=== PATIENT | male | born 1945 | race Caucasian/White ===

== ENCOUNTER 2021-01-28 07:37 | Inpatient (IN) | payer MEDICARE, OTHER ==
[~2021-01-28] VITALS: Ht 182.9 cm; Wt 100.5 kg
--- NOTE | 2021-01-28 07:52 | NUR ---
THIS IS A 75 YEAR OLD MALE WHO WAS BIB AMBULANCE FROM [place], HX OF DE X2, STENT, DM, CHF, FISTULA RIGHT ARM (YET TO START DIALYSIS) DUE TO SOB. PT WAS GIVENT 3 NTG, 40MG OF LASIX IV, AND 6MG OF MORPHINE. PT WAS ON C-PAP WHEN ARRIVE, SATS 76-93. PT PLACED ON HIGH LOW OXYGEN AT 50L AND 100%, SAT 92-95, PT ON WATER RESTORATION TECHNICIAN AT 79, LBBB. CONTINOUS SPO2, AND CYCLE VS. MD AT , EKG COMPLETED
[2021-01-28] MEDS ORDERED: FENTANYL PF 100 MCG/2ML IVPush ONE (08:00)
[2021-01-28] MEDS ORDERED: SODIUM CHLORIDE FLUSH 10ML SYR IVF ONE (08:00)
[2021-01-28] MEDS ORDERED: FENTANYL PF 100 MCG/2ML ONE (08:02)
[2021-01-28] MEDS ORDERED: CARV6.252 PO (08:14)
[2021-01-28] MEDS ORDERED: INSU100V13 SUBD (08:14)
[2021-01-28] MEDS ORDERED: INSU100I17 SQ-INSULIN (08:16)
[2021-01-28] MEDS ORDERED: CALC-777 MT (08:17)
[2021-01-28] MEDS ORDERED: CHOL10003 PO (08:17)
[2021-01-28] MEDS ORDERED: FURO-93 PO (08:18)
[2021-01-28] MEDS ORDERED: DOXA8TAB2 PO (08:18)
[2021-01-28] MEDS ORDERED: PRAV40TA2 PO (08:21)
[2021-01-28] MEDS ORDERED: TADA20TA PO (08:22)
--- NOTE | 2021-01-28 08:23 | NUR ---
PT SLEEPING, WAFFLE BED PLACED. REPORT TO GARY JACOB, PLAN OF CARE DISCUSSED
--- NOTE | 2021-01-28 08:30 | NUR ---
assuming care of pt after bedside report from jena rogel. pt asleep with even and unlabored respirations. rosa m.dion/
[2021-01-28 09:06] LABS: BASOPHILS % (AUTO) 0 % (0-1); EOSINOPHILS % (AUTO) 0 % (1-7); LYMPHOCYTES % (AUTO) 4 % (22-44); MEAN CORPUSCULAR HEMOGLOBIN 29.9 pg (27.5-34.5); MEAN PLATELET VOLUME 9.4 fL (7.4-10.4); MONOCYTES % (AUTO) 2 % (2-9); NEUTROPHILS % (AUTO) 94 % (42-75); PLATELET COUNT 202 x10^3/uL (130-400); RED BLOOD COUNT 3.88 x10^6/uL (4.38-5.82); RED CELL DISTRIBUTION WIDTH 14.8 % (9.4-14.8)
--- NOTE | 2021-01-28 09:08 | NUR ---
pt resting in bed requesting pain medication. md alcantar. vss. ashley.
[2021-01-28 09:15] LABS: ALANINE AMINOTRANSFERASE 51 U/L (12-78); ALBUMIN 3.7 g/dL (3.4-5.0); ANION GAP 23 mmol/L (5-15); CALCIUM 8.8 mg/dL (8.5-10.1); CHLORIDE 95 mmol/L (98-107)
[2021-01-28 09:19] LABS: ALKALINE PHOSPHATASE 100 U/L (45-117); BILIRUBIN,TOTAL 0.5 mg/dL (0.2-1.0); TOTAL PROTEIN 7.5 g/dL (6.4-8.2)
[2021-01-28 09:27] LABS: CREATININE 5.66 mg/dL (0.7-1.3)
[2021-01-28 09:32] LABS: <PLATELET ESTIMATE> ADEQUATE; <PLT MORPHOLOGY> NORMAL PLT MORPH; CRENATED 1+; OVALOCYTES 1+; SCHISTOCYTES 1+
[2021-01-28 09:33] LABS: ECHINOCYTES 1+
[2021-01-28] MEDS ORDERED: MORPHINE SULFATE 4 MG/ML, 1ML ONE (09:36)
[2021-01-28] MEDS ORDERED: ONDANSETRON 2MG/ML, 2ML ONE (09:36)
--- NOTE | 2021-01-28 09:44 | NUR ---
pt medicated per emar for pain and nausea.
[2021-01-28] MEDS ORDERED: FUROSEMIDE 100 MG/10 ML IV ONE (10:00)
[2021-01-28] MEDS ORDERED: MORPHINE SULFATE 4 MG/ML, 1ML IVPush ONE (10:00)
[2021-01-28] MEDS ORDERED: ONDANSETRON 2MG/ML, 2ML IVPush ONE (10:00)
[2021-01-28] MEDS ORDERED: FUROSEMIDE 40 MG/4 ML ONE (10:06)
[2021-01-28] MEDS ORDERED: HEPARIN 25,000 UNITS/250ML PMX 250 ML ONE (10:07)
[2021-01-28] MEDS ORDERED: HEPARIN 5,000 UNITS/ML, 1ML ONE (10:07)
[2021-01-28] MEDS: HEPARIN 25,000 UNITS/250ML PMX 250 ML IV PRN ×2 (10:27→23:36)
[2021-01-28] MEDS ORDERED: HEPARIN 5,000 UNITS/ML, 1ML IV ONE (10:30)
--- NOTE | 2021-01-28 11:35 | NUR ---
REPORT CALLED TO OSMAR
[2021-01-28] MEDS ORDERED: SODIUM ZIRCONIUM CYCLOSILICATE 10 GM PO ONE (12:00)
[2021-01-28 12:30] VITALS: BP 106/68
[2021-01-28] MEDS: INSULIN LISPRO 100 UNITS/ML, PEN SQ-INSULIN SCH ×3 (13:46→21:28)
[2021-01-28 17:26] VITALS: BP 110/66
[2021-01-28] MEDS: HEPARIN 5,000 UNITS/ML, 1ML IV PRN (18:39)
[2021-01-28] MEDS ORDERED: ONDANSETRON ODT 4 MG ONE (20:24)
[2021-01-28] MEDS ORDERED: ONDANSETRON ODT 4 MG PO PRN (20:30)
[2021-01-28] MEDS ORDERED: INSULIN GLARGINE 100 UNITS/ML, PEN SQ-INSULIN SCH (21:00)
[2021-01-28 21:25] VITALS: BP 112/73
[2021-01-28] MEDS: SODIUM BICARBONATE 650 MG TABLET PO SCH (21:26)
[2021-01-28] MEDS: CARVEDILOL 6.25 MG TABLET PO SCH (21:26)
[2021-01-28] MEDS: PRAVASTATIN 40 MG TABLET PO SCH (21:26)
[2021-01-28 23:01] LABS: BASOPHILS % (AUTO) 1 % (0-1); EOSINOPHILS % (AUTO) 0 % (1-7); LYMPHOCYTES % (AUTO) 3 % (22-44); MEAN CORPUSCULAR HEMOGLOBIN 29.5 pg (27.5-34.5); MEAN CORPUSCULAR HGB CONC 33.1 g/dL (33.2-36.2); MEAN PLATELET VOLUME 9.2 fL (7.4-10.4); MONOCYTES % (AUTO) 9 % (2-9); NEUTROPHILS % (AUTO) 88 % (42-75); PLATELET COUNT 206 x10^3/uL (130-400); RED BLOOD COUNT 3.75 x10^6/uL (4.38-5.82); RED CELL DISTRIBUTION WIDTH 14.9 % (9.4-14.8)
[2021-01-28 23:11] LABS: ALANINE AMINOTRANSFERASE 55 U/L (12-78); ALBUMIN 3.2 g/dL (3.4-5.0); ANION GAP 16 mmol/L (5-15); CALCIUM 8.9 mg/dL (8.5-10.1); CHLORIDE 95 mmol/L (98-107); CREATININE 6.21 mg/dL (0.7-1.3)
[2021-01-28 23:13] LABS: ALKALINE PHOSPHATASE 87 U/L (45-117); BILIRUBIN,TOTAL 0.4 mg/dL (0.2-1.0); TOTAL PROTEIN 7.4 g/dL (6.4-8.2)
[2021-01-28] MEDS ORDERED: LIDOCAINE-MPF 1%, 2ML ENDO PRN (23:30)
[2021-01-28] MEDS ORDERED: PHARMACY MAY ADJ FOR RENAL FX MC SCH (23:30)
[2021-01-28] MEDS: PROPOFOL 100 ML IV PRN (23:49)
[2021-01-29] MEDS ORDERED: ONDANSETRON 2MG/ML, 2ML IV PRN
[2021-01-29] MEDS ORDERED: INSULIN GLARGINE 100 UNITS/ML, PEN SQ-INSULIN SCH
[2021-01-29] MEDS ORDERED: INSULIN GLARGINE 100 UNITS/ML, PEN SQ-INSULIN ONE
[2021-01-29] MEDS: MIDAZOLAM HCL 50 MG in SODIUM CHLORIDE 0.9% 40 ML IV PRN ×2 (02:01→13:22)
[2021-01-29 06:19] LABS: BASOPHILS % (AUTO) 1 % (0-1); EOSINOPHILS % (AUTO) 0 % (1-7); LYMPHOCYTES % (AUTO) 4 % (22-44); MEAN CORPUSCULAR HEMOGLOBIN 29.3 pg (27.5-34.5); MEAN CORPUSCULAR HGB CONC 33.3 g/dL (33.2-36.2); MEAN PLATELET VOLUME 9.3 fL (7.4-10.4); MONOCYTES % (AUTO) 10 % (2-9); NEUTROPHILS % (AUTO) 86 % (42-75); PLATELET COUNT 171 x10^3/uL (130-400); RED BLOOD COUNT 3.56 x10^6/uL (4.38-5.82); RED CELL DISTRIBUTION WIDTH 14.8 % (9.4-14.8)
[2021-01-29 06:28] LABS: ANION GAP 11 mmol/L (5-15); CALCIUM 8.6 mg/dL (8.5-10.1); CHLORIDE 94 mmol/L (98-107); CREATININE 6.52 mg/dL (0.7-1.3)
[2021-01-29] MEDS ORDERED: FUROSEMIDE 40 MG/4 ML IV SCH (07:00)
[2021-01-29] MEDS ORDERED: DEXTROSE 50%, 50ML SYRINGE IVPush ONE (07:30)
[2021-01-29] MEDS ORDERED: INSULIN REGULAR 100 UNITS/ML, 3ML VIAL IVPush ONE (07:30)
[2021-01-29] MEDS ORDERED: CALCIUM GLUCONATE 0.46MEQ/1ML IVPush ONE (07:30)
[2021-01-29] MEDS ORDERED: FUROSEMIDE 100 MG/10 ML IV ONE (07:30)
[2021-01-29] MEDS: SODIUM BICARBONATE 650 MG TABLET PO SCH ×2 (09:38→20:01)
[2021-01-29] MEDS: CARVEDILOL 6.25 MG TABLET PO SCH ×2 (09:38→20:01)
[2021-01-29] MEDS: PANTOPRAZOLE 40 MG IV IV SCH (09:39)
[2021-01-29] MEDS: CHOLECALCIFEROL 1,000 UNIT TABLET PO SCH (09:39)
[2021-01-29] MEDS: DOXAZOSIN 2MG TABLET PO SCH (09:39)
[2021-01-29] MEDS: INSULIN LISPRO 100 UNITS/ML, PEN SQ-INSULIN SCH ×4 (09:40→20:19)
--- NOTE | 2021-01-29 11:45 | NUR ---
TF recs if needed: Vital AF 1.2 goal: 60mL/hr ON propofol, 70mL/hr OFF propofol Addendum: 01/29/21 at [address] Amended: Links added.
[2021-01-29] MEDS: HEPARIN 5,000 UNITS/ML, 1ML IV PRN (17:01)
[2021-01-29] MEDS: PRAVASTATIN 40 MG TABLET PO SCH (20:01)
[2021-01-29] MEDS: INSULIN GLARGINE 100 UNITS/ML, PEN SQ-INSULIN SCH (20:20)
[2021-01-30] MEDS: HEPARIN 25,000 UNITS/250ML PMX 250 ML IV PRN ×2 (00:25→19:34)
[2021-01-30 01:12] VITALS: BP 144/70
[2021-01-30] MEDS: INSULIN LISPRO 100 UNITS/ML, PEN SQ-INSULIN SCH ×4 (03:26→21:05)
[2021-01-30 05:51] LABS: BASOPHILS % (AUTO) 0 % (0-1); EOSINOPHILS % (AUTO) 0 % (1-7); LYMPHOCYTES % (AUTO) 5 % (22-44); MEAN CORPUSCULAR HEMOGLOBIN 29.6 pg (27.5-34.5); MEAN CORPUSCULAR HGB CONC 33.6 g/dL (33.2-36.2); MEAN PLATELET VOLUME 9.5 fL (7.4-10.4); MONOCYTES % (AUTO) 11 % (2-9); NEUTROPHILS % (AUTO) 84 % (42-75); PLATELET COUNT 135 x10^3/uL (130-400)
[2021-01-30] MEDS: HEPARIN 5,000 UNITS/ML, 1ML IV PRN ×2 (06:07→14:50)
[2021-01-30 07:02] LABS: ANION GAP 12 mmol/L (5-15); CALCIUM 8.8 mg/dL (8.5-10.1); CHLORIDE 98 mmol/L (98-107); CREATININE 5.56 mg/dL (0.7-1.3)
[2021-01-30] MEDS: CALCITRIOL 0.25 MCG CAPSULE PO SCH (08:45)
[2021-01-30] MEDS: CHOLECALCIFEROL 1,000 UNIT TABLET PO SCH (08:45)
[2021-01-30] MEDS: DOXAZOSIN 2MG TABLET PO SCH (08:45)
[2021-01-30] MEDS: SODIUM BICARBONATE 650 MG TABLET PO SCH ×2 (08:46→20:38)
[2021-01-30] MEDS: CARVEDILOL 6.25 MG TABLET PO SCH ×2 (08:46→20:38)
[2021-01-30] MEDS: PANTOPRAZOLE 40 MG IV IV SCH (08:47)
[2021-01-30] MEDS: MIDAZOLAM HCL 50 MG in SODIUM CHLORIDE 0.9% 40 ML IV PRN (19:21)
[2021-01-30] MEDS: PRAVASTATIN 40 MG TABLET PO SCH (20:37)
[2021-01-30] MEDS: INSULIN GLARGINE 100 UNITS/ML, PEN SQ-INSULIN SCH (21:05)
[2021-01-31 03:14] LABS: BASOPHILS % (AUTO) 1 % (0-1); EOSINOPHILS % (AUTO) 0 % (1-7); LYMPHOCYTES % (AUTO) 5 % (22-44); MEAN CORPUSCULAR HEMOGLOBIN 29.3 pg (27.5-34.5); MEAN CORPUSCULAR HGB CONC 33.1 g/dL (33.2-36.2); MEAN PLATELET VOLUME 9.6 fL (7.4-10.4); MONOCYTES % (AUTO) 10 % (2-9); NEUTROPHILS % (AUTO) 84 % (42-75); PLATELET COUNT 132 x10^3/uL (130-400); RED BLOOD COUNT 3.25 x10^6/uL (4.38-5.82); RED CELL DISTRIBUTION WIDTH 14.8 % (9.4-14.8)
[2021-01-31] MEDS: INSULIN LISPRO 100 UNITS/ML, PEN SQ-INSULIN SCH ×4 (03:16→21:15)
[2021-01-31] MEDS: MIDAZOLAM HCL 50 MG in SODIUM CHLORIDE 0.9% 40 ML IV PRN (04:09)
[2021-01-31 04:19] LABS: ANION GAP 13 mmol/L (5-15); CALCIUM 8.6 mg/dL (8.5-10.1); CHLORIDE 99 mmol/L (98-107); CREATININE 5.29 mg/dL (0.7-1.3)
[2021-01-31] MEDS: HEPARIN 5,000 UNITS/ML, 1ML IV PRN (04:40)
[2021-01-31] MEDS: CARVEDILOL 6.25 MG TABLET PO SCH ×2 (08:42→21:06)
[2021-01-31] MEDS: CHOLECALCIFEROL 1,000 UNIT TABLET PO SCH (08:42)
[2021-01-31] MEDS: SODIUM BICARBONATE 650 MG TABLET PO SCH ×2 (08:42→21:06)
[2021-01-31] MEDS: PANTOPRAZOLE 40 MG IV IV SCH (08:42)
[2021-01-31] MEDS: CALCITRIOL 0.25 MCG CAPSULE PO SCH (08:42)
[2021-01-31] MEDS: DOXAZOSIN 2MG TABLET PO SCH (08:42)
[2021-01-31] MEDS ORDERED: LOSARTAN 25MG TABLET ONE (08:45)
[2021-01-31] MEDS: LOSARTAN 25MG TABLET PO SCH (08:45)
[2021-01-31] MEDS: ASPIRIN 81 MG TABLET CHEW PO SCH (08:45)
[2021-01-31] MEDS ORDERED: ASPIRIN 81 MG TABLET CHEW ONE (08:45)
[2021-01-31] MEDS: HEPARIN 5,000 UNITS/ML, 1ML SQ SCH ×2 (08:58→16:55)
[2021-01-31] MEDS ORDERED: ALBUMIN HUMAN 25% 100 ML ONE (10:39)
[2021-01-31] MEDS ORDERED: ALBUMIN HUMAN 25% 100 ML IV ONE ×2 (11:00)
[2021-01-31] MEDS: FENTANYL PF 100 MCG/2ML IVPush PRN (18:09)
[2021-01-31] MEDS: PROPOFOL 100 ML IV PRN (20:34)
[2021-01-31] MEDS: ATORVASTATIN 80 MG TABLET PO SCH (21:06)
[2021-01-31] MEDS: INSULIN GLARGINE 100 UNITS/ML, PEN SQ-INSULIN SCH (21:14)
[2021-02-01] MEDS: PROPOFOL 100 ML IV PRN (00:45)
[2021-02-01] MEDS: HEPARIN 5,000 UNITS/ML, 1ML SQ SCH ×3 (00:46→17:25)
[2021-02-01] MEDS: INSULIN LISPRO 100 UNITS/ML, PEN SQ-INSULIN SCH ×4 (03:21→21:51)
[2021-02-01 04:39] LABS: BASOPHILS % (AUTO) 0 % (0-1); EOSINOPHILS % (AUTO) 0 % (1-7); LYMPHOCYTES % (AUTO) 7 % (22-44); MEAN CORPUSCULAR HEMOGLOBIN 30.1 pg (27.5-34.5); MEAN CORPUSCULAR HGB CONC 34.1 g/dL (33.2-36.2); MEAN PLATELET VOLUME 9.8 fL (7.4-10.4); MONOCYTES % (AUTO) 15 % (2-9); NEUTROPHILS % (AUTO) 78 % (42-75); PLATELET COUNT 133 x10^3/uL (130-400); RED CELL DISTRIBUTION WIDTH 14.3 % (9.4-14.8)
[2021-02-01 05:18] LABS: ANION GAP 10 mmol/L (5-15); CALCIUM 8.4 mg/dL (8.5-10.1); CHLORIDE 102 mmol/L (98-107); CREATININE 4.08 mg/dL (0.7-1.3)
[2021-02-01] MEDS: DOCUSATE 50 MG/5 ML, 10ML UDC NG SCH (08:27)
[2021-02-01] MEDS: DOXAZOSIN 2MG TABLET PO SCH (08:28)
[2021-02-01] MEDS: CARVEDILOL 6.25 MG TABLET PO SCH (08:28)
[2021-02-01] MEDS: ASPIRIN 81 MG TABLET CHEW PO SCH (08:28)
[2021-02-01] MEDS: CHOLECALCIFEROL 1,000 UNIT TABLET PO SCH (08:28)
[2021-02-01] MEDS: PANTOPRAZOLE 40 MG IV IV SCH (08:29)
[2021-02-01] MEDS: LOSARTAN 25MG TABLET PO SCH (08:29)
[2021-02-01] MEDS: CALCITRIOL 0.25 MCG CAPSULE PO SCH (08:29)
[2021-02-01] MEDS ORDERED: DOCUSATE 100 MG CAPSULE PO SCH (09:00)
[2021-02-01] MEDS: DEXMEDETOMIDINE 400 MCG in SODIUM CHLORIDE 0.9% 96 ML IV PRN ×2 (09:42→14:09)
[2021-02-01] MEDS: FENTANYL PF 100 MCG/2ML IVPush PRN ×2 (11:29→18:41)
[2021-02-01] MEDS ORDERED: POTASSIUM CHLORIDE 20 MEQ TAB.ER.PRT ONE (12:24)
[2021-02-01] MEDS ORDERED: POTASSIUM CHLORIDE 20 MEQ TAB.ER.PRT PO ONE (12:30)
[2021-02-01] MEDS: DEXMEDETOMIDINE 1,000 MCG in SODIUM CHLORIDE 0.9% 240 ML IV PRN (19:53)
[2021-02-01] MEDS: LACTULOSE 20 GM/30 ML UDC PO PRN (19:53)
[2021-02-01] MEDS: ATORVASTATIN 80 MG TABLET PO SCH (19:57)
[2021-02-01] MEDS: SENNA 176 MG/5 ML ORAL SOL NG SCH (20:24)
[2021-02-01] MEDS ORDERED: CARVEDILOL 6.25 MG TABLET PO SCH (21:00)
[2021-02-01] MEDS ORDERED: SENNA/DOCUSATE TABLET PO SCH (21:00)
[2021-02-01] MEDS: INSULIN GLARGINE 100 UNITS/ML, PEN SQ-INSULIN SCH (21:51)
[2021-02-02] MEDS: HEPARIN 5,000 UNITS/ML, 1ML SQ SCH ×3 (01:05→17:13)
[2021-02-02 03:37] LABS: MEAN CORPUSCULAR HGB CONC 33.8 g/dL (33.2-36.2); MEAN PLATELET VOLUME 9.4 fL (7.4-10.4); PLATELET COUNT 150 x10^3/uL (130-400); RED BLOOD COUNT 3.52 x10^6/uL (4.38-5.82); RED CELL DISTRIBUTION WIDTH 14.6 % (9.4-14.8)
[2021-02-02 03:44] LABS: ANION GAP 13 mmol/L (5-15); CALCIUM 8.6 mg/dL (8.5-10.1); CHLORIDE 101 mmol/L (98-107)
[2021-02-02] MEDS: FENTANYL PF 100 MCG/2ML IVPush PRN (03:48)
[2021-02-02] MEDS: INSULIN LISPRO 100 UNITS/ML, PEN SQ-INSULIN SCH ×4 (03:54→21:37)
[2021-02-02 04:06] LABS: BAND#(MANUAL) 0.84 x10^3/uL; BANDS%(MANUAL) 8 % (0-7); LYMPH#(MANUAL) 0.42 x10^3/uL (1-3.4); LYMPHS% (MANUAL) 4 % (22-44); MONOS#(MANUAL) 1.16 x10^3/uL (0.3-2.7); MONOS% (MANUAL) 11 % (2-9); PMNS WITH VACUOLES 2+; SEG#(MANUAL) 8.09 x10^3/uL (1.8-6.8); SEGS% (MANUAL) 77 % (42-75)
[2021-02-02 04:07] LABS: ANISOCYTOSIS 1+; CRENATED 1+; OVALOCYTES 1+
[2021-02-02 04:09] LABS: <PLATELET ESTIMATE> ADEQUATE; LARGE PLATELETS 1+
[2021-02-02 07:07] LABS: ALBUMIN 2.3 g/dL (3.4-5.0); BILIRUBIN, DIRECT 0.4 mg/dL (0.1-0.2)
[2021-02-02 07:09] LABS: BILIRUBIN,INDIRECT 0.6 mg/dL (0.0-2.0); TOTAL PROTEIN 6.6 g/dL (6.4-8.2)
[2021-02-02] MEDS: DEXMEDETOMIDINE 1,000 MCG in SODIUM CHLORIDE 0.9% 240 ML IV PRN (07:17)
[2021-02-02] MEDS: PANTOPRAZOLE 40 MG IV IV SCH (08:31)
[2021-02-02] MEDS: DOCUSATE 50 MG/5 ML, 10ML UDC NG SCH (08:31)
[2021-02-02] MEDS: LOSARTAN 25MG TABLET PO SCH ×2 (08:32→20:49)
[2021-02-02] MEDS: CALCITRIOL 0.25 MCG CAPSULE PO SCH (08:32)
[2021-02-02] MEDS: ASPIRIN 81 MG TABLET CHEW PO SCH (08:32)
[2021-02-02] MEDS: CARVEDILOL 25 MG TABLET PO SCH ×2 (08:32→20:50)
[2021-02-02] MEDS: CHOLECALCIFEROL 1,000 UNIT TABLET PO SCH (08:32)
[2021-02-02] MEDS: DOXAZOSIN 2MG TABLET PO SCH (08:52)
[2021-02-02] MEDS ORDERED: FUROSEMIDE 100 MG/10 ML IV ONE (11:30)
[2021-02-02] MEDS: LACTULOSE 20 GM/30 ML UDC PO PRN (14:12)
[2021-02-02] MEDS: ATORVASTATIN 80 MG TABLET PO SCH (20:49)
[2021-02-02] MEDS: SENNA 176 MG/5 ML ORAL SOL NG SCH (21:24)
[2021-02-02] MEDS: INSULIN GLARGINE 100 UNITS/ML, PEN SQ-INSULIN SCH (21:37)
[2021-02-03] MEDS: HEPARIN 5,000 UNITS/ML, 1ML SQ SCH ×3 (00:01→16:55)
[2021-02-03] MEDS: DEXMEDETOMIDINE 1,000 MCG in SODIUM CHLORIDE 0.9% 240 ML IV PRN ×3 (00:59→21:27)
[2021-02-03] MEDS: INSULIN LISPRO 100 UNITS/ML, PEN SQ-INSULIN SCH ×4 (03:46→21:18)
[2021-02-03 04:23] LABS: BASOPHILS % (AUTO) 0 % (0-1); EOSINOPHILS % (AUTO) 1 % (1-7); LYMPHOCYTES % (AUTO) 5 % (22-44); MEAN CORPUSCULAR HEMOGLOBIN 29.9 pg (27.5-34.5); MEAN CORPUSCULAR HGB CONC 34.1 g/dL (33.2-36.2); MEAN PLATELET VOLUME 9.3 fL (7.4-10.4); MONOCYTES % (AUTO) 19 % (2-9); NEUTROPHILS % (AUTO) 76 % (42-75); PLATELET COUNT 154 x10^3/uL (130-400); RED BLOOD COUNT 3.21 x10^6/uL (4.38-5.82); RED CELL DISTRIBUTION WIDTH 14.2 % (9.4-14.8)
[2021-02-03 04:35] LABS: ANION GAP 10 mmol/L (5-15); CHLORIDE 99 mmol/L (98-107)
[2021-02-03 04:38] LABS: CREATININE 3.63 mg/dL (0.7-1.3); TRIGLYCERIDES 102 mg/dL (50-200)
[2021-02-03] MEDS: CHOLECALCIFEROL 1,000 UNIT TABLET PO SCH (09:36)
[2021-02-03] MEDS: ASPIRIN 81 MG TABLET CHEW PO SCH (09:36)
[2021-02-03] MEDS: DOCUSATE 50 MG/5 ML, 10ML UDC NG SCH (09:36)
[2021-02-03] MEDS: PANTOPRAZOLE 40 MG IV IV SCH (09:37)
[2021-02-03] MEDS: AMLODIPINE 5 MG TABLET PO SCH (11:53)
[2021-02-03] MEDS: RISPERIDONE 1 MG/ML ORAL SOLN NG SCH ×2 (11:53→21:05)
[2021-02-03] MEDS: DOXAZOSIN 2MG TABLET PO SCH (11:54)
[2021-02-03] MEDS: CARVEDILOL 25 MG TABLET PO SCH ×2 (11:55→21:05)
[2021-02-03] MEDS: LOSARTAN 25MG TABLET PO SCH ×2 (11:55→21:06)
[2021-02-03] MEDS ORDERED: FUROSEMIDE 100 MG/10 ML IV ONE (13:00)
[2021-02-03] MEDS: CALCITRIOL 1 MCG/ML SOL NG SCH (14:14)
[2021-02-03] MEDS: LACTULOSE 20 GM/30 ML UDC PO PRN ×2 (16:54→16:57)
[2021-02-03] MEDS: LORazepam 1MG TABLET PO PRN ×2 (16:54→22:59)
[2021-02-03] MEDS: ATORVASTATIN 80 MG TABLET PO SCH (21:06)
[2021-02-03] MEDS: INSULIN GLARGINE 100 UNITS/ML, PEN SQ-INSULIN SCH (21:19)
[2021-02-03] MEDS ORDERED: METHYLNALTREXONE 12 MG/0.6 ML SYR SQ STA (22:12)
[2021-02-04] MEDS: HEPARIN 5,000 UNITS/ML, 1ML SQ SCH ×3 (01:14→18:31)
[2021-02-04] MEDS: INSULIN LISPRO 100 UNITS/ML, PEN SQ-INSULIN SCH ×4 (03:00→20:43)
[2021-02-04] MEDS: DEXMEDETOMIDINE 1,000 MCG in SODIUM CHLORIDE 0.9% 240 ML IV PRN (04:44)
[2021-02-04 04:59] LABS: BASOPHILS % (AUTO) 0 % (0-1); EOSINOPHILS % (AUTO) 2 % (1-7); LYMPHOCYTES % (AUTO) 7 % (22-44); MEAN CORPUSCULAR HEMOGLOBIN 29.4 pg (27.5-34.5); MEAN PLATELET VOLUME 9.4 fL (7.4-10.4); MONOCYTES % (AUTO) 22 % (2-9); NEUTROPHILS % (AUTO) 70 % (42-75); PLATELET COUNT 162 x10^3/uL (130-400); RED BLOOD COUNT 3.01 x10^6/uL (4.38-5.82); RED CELL DISTRIBUTION WIDTH 14.1 % (9.4-14.8)
[2021-02-04 05:11] LABS: ANION GAP 8 mmol/L (5-15); CALCIUM 8.5 mg/dL (8.5-10.1); CHLORIDE 100 mmol/L (98-107); CREATININE 4.41 mg/dL (0.7-1.3)
[2021-02-04] MEDS ORDERED: METOCLOPRAMIDE 5 MG/ML, 2ML ONE (06:02)
[2021-02-04] MEDS: METOCLOPRAMIDE 5 MG/ML, 2ML IVPush SCH ×3 (06:05→18:31)
[2021-02-04] MEDS ORDERED: FLUMAZENIL 0.1 MG/1 ML, 5ML ONE (07:26)
[2021-02-04] MEDS ORDERED: FLUMAZENIL 0.1 MG/1 ML, 5ML IVPush ONE ×2 (07:30→08:00)
[2021-02-04] MEDS: LOSARTAN 25MG TABLET PO SCH ×2 (09:00→20:49)
[2021-02-04] MEDS: CALCITRIOL 1 MCG/ML SOL NG SCH (09:00)
[2021-02-04] MEDS: AMLODIPINE 5 MG TABLET PO SCH (09:00)
[2021-02-04] MEDS: CHOLECALCIFEROL 1,000 UNIT TABLET PO SCH (09:00)
[2021-02-04] MEDS: ASPIRIN 81 MG TABLET CHEW PO SCH (09:00)
[2021-02-04] MEDS: DOCUSATE 50 MG/5 ML, 10ML UDC NG SCH (09:00)
[2021-02-04] MEDS: RISPERIDONE 1 MG/ML ORAL SOLN NG SCH ×2 (09:00→20:48)
[2021-02-04] MEDS: DOXAZOSIN 2MG TABLET PO SCH (09:00)
[2021-02-04] MEDS: CARVEDILOL 25 MG TABLET PO SCH ×2 (09:00→20:49)
[2021-02-04] MEDS: PANTOPRAZOLE 40 MG IV IV SCH (09:14)
[2021-02-04] MEDS ORDERED: ALBUMIN HUMAN 25% 100 ML ONE (15:10)
[2021-02-04] MEDS: BISACODYL 10 MG SUPP PR PRN (16:28)
[2021-02-04] MEDS: INSULIN GLARGINE 100 UNITS/ML, PEN SQ-INSULIN SCH (20:44)
[2021-02-04] MEDS: ATORVASTATIN 80 MG TABLET PO SCH (20:49)
[2021-02-04] MEDS ORDERED: DIPHENHYDRAMINE 25 MG CAPSULE ONE (23:03)
[2021-02-04] MEDS ORDERED: DIPHENHYDRAMINE 25 MG CAPSULE PO PRN (23:30)
[2021-02-05] MEDS: METOCLOPRAMIDE 5 MG/ML, 2ML IVPush SCH ×4 (00:21→17:11)
[2021-02-05] MEDS: HEPARIN 5,000 UNITS/ML, 1ML SQ SCH ×3 (00:22→17:12)
[2021-02-05 02:26] LABS: OCCULT BLOOD NEGATIVE (NEGATIVE)
[2021-02-05] MEDS: INSULIN LISPRO 100 UNITS/ML, PEN SQ-INSULIN SCH ×5 (03:03→21:03)
[2021-02-05] MEDS ORDERED: ACETAMINOPHEN 500 MG TABLET ONE (03:42)
[2021-02-05] MEDS: ACETAMINOPHEN 500 MG TABLET PO PRN ×2 (03:44→12:24)
[2021-02-05 03:49] VITALS: BP 121/53
[2021-02-05 04:40] LABS: BASOPHILS % (AUTO) 1 % (0-1); EOSINOPHILS % (AUTO) 0 % (1-7); LYMPHOCYTES % (AUTO) 3 % (22-44); MEAN CORPUSCULAR HEMOGLOBIN 29.8 pg (27.5-34.5); MEAN CORPUSCULAR HGB CONC 33.5 g/dL (33.2-36.2); MONOCYTES % (AUTO) 18 % (2-9); NEUTROPHILS % (AUTO) 78 % (42-75); PLATELET COUNT 172 x10^3/uL (130-400); RED BLOOD COUNT 2.83 x10^6/uL (4.38-5.82); RED CELL DISTRIBUTION WIDTH 14.3 % (9.4-14.8)
[2021-02-05 04:48] LABS: ANION GAP 11 mmol/L (5-15); CHLORIDE 99 mmol/L (98-107)
[2021-02-05 04:49] LABS: CREATININE 4.12 mg/dL (0.7-1.3)
[2021-02-05] MEDS: PANTOPRAZOLE 40 MG IV IV SCH (08:46)
[2021-02-05] MEDS: CALCITRIOL 1 MCG/ML SOL NG SCH (08:47)
[2021-02-05] MEDS: DOCUSATE 50 MG/5 ML, 10ML UDC NG SCH (08:47)
[2021-02-05] MEDS: RISPERIDONE 1 MG/ML ORAL SOLN NG SCH (08:47)
[2021-02-05] MEDS: CHOLECALCIFEROL 1,000 UNIT TABLET PO SCH (08:48)
[2021-02-05] MEDS: ASPIRIN 81 MG TABLET CHEW PO SCH (08:48)
[2021-02-05] MEDS: CARVEDILOL 25 MG TABLET PO SCH ×2 (08:48→20:50)
[2021-02-05] MEDS: LOSARTAN 25MG TABLET PO SCH ×2 (08:48→20:50)
[2021-02-05] MEDS: AMLODIPINE 5 MG TABLET PO SCH (08:48)
[2021-02-05] MEDS: DOXAZOSIN 2MG TABLET PO SCH (08:49)
[2021-02-05] MEDS: ATORVASTATIN 80 MG TABLET PO SCH (20:50)
[2021-02-05] MEDS: MELATONIN 5 MG TABLET PO SCH (20:50)
[2021-02-05] MEDS: INSULIN GLARGINE 100 UNITS/ML, PEN SQ-INSULIN SCH (21:03)
[2021-02-06] MEDS: METOCLOPRAMIDE 5 MG/ML, 2ML IVPush SCH ×2 (00:24→02:45)
[2021-02-06] MEDS: HEPARIN 5,000 UNITS/ML, 1ML SQ SCH ×3 (00:24→16:55)
[2021-02-06] MEDS: INSULIN LISPRO 100 UNITS/ML, PEN SQ-INSULIN SCH ×4 (02:49→21:17)
[2021-02-06 03:57] LABS: ANION GAP 16 mmol/L (5-15); CALCIUM 8.8 mg/dL (8.5-10.1); CHLORIDE 97 mmol/L (98-107); CREATININE 6.15 mg/dL (0.7-1.3)
[2021-02-06 06:23] LABS: BASOPHILS % (AUTO) 0 % (0-1); EOSINOPHILS % (AUTO) 0 % (1-7); LYMPHOCYTES % (AUTO) 4 % (22-44); MEAN CORPUSCULAR HEMOGLOBIN 29.6 pg (27.5-34.5); MEAN CORPUSCULAR HGB CONC 33.1 g/dL (33.2-36.2); MEAN PLATELET VOLUME 9.7 fL (7.4-10.4); MONOCYTES % (AUTO) 11 % (2-9); NEUTROPHILS % (AUTO) 85 % (42-75); PLATELET COUNT 180 x10^3/uL (130-400); RED BLOOD COUNT 2.87 x10^6/uL (4.38-5.82); RED CELL DISTRIBUTION WIDTH 14.5 % (9.4-14.8)
[2021-02-06] MEDS: PANTOPRAZOLE 40 MG IV IV SCH (08:23)
[2021-02-06] MEDS: ASPIRIN 81 MG TABLET CHEW PO SCH (08:24)
[2021-02-06] MEDS: LOSARTAN 25MG TABLET PO SCH ×2 (08:24→20:35)
[2021-02-06] MEDS: AMLODIPINE 5 MG TABLET PO SCH (08:24)
[2021-02-06] MEDS: CHOLECALCIFEROL 1,000 UNIT TABLET PO SCH (08:24)
[2021-02-06] MEDS: CARVEDILOL 25 MG TABLET PO SCH ×2 (08:24→20:35)
[2021-02-06] MEDS: DOCUSATE 50 MG/5 ML, 10ML UDC NG SCH (08:25)
[2021-02-06] MEDS: D5%-0.45% NACL 1,000 ML IV SCH ×2 (09:57→21:49)
[2021-02-06] MEDS: CALCITRIOL 1 MCG/ML SOL NG SCH (10:01)
[2021-02-06] MEDS: DOXAZOSIN 2MG TABLET PO SCH (12:00)
[2021-02-06] MEDS: ALBUMIN HUMAN 25% 100 ML IV PRN (13:55)
[2021-02-06] MEDS: ATORVASTATIN 80 MG TABLET PO SCH (20:35)
[2021-02-06] MEDS: MELATONIN 5 MG TABLET PO SCH (20:36)
[2021-02-06] MEDS: INSULIN GLARGINE 100 UNITS/ML, PEN SQ-INSULIN SCH (20:37)
[2021-02-06] MEDS ORDERED: INSULIN LISPRO 100 UNIT/ML, 3ML VIAL SQ-INSULIN ONE ×2 (21:30→22:30)
[2021-02-07] VITALS (13 sets, daily range): BP systolic 125–141; BP diastolic 49–65
[2021-02-07] MEDS: HEPARIN 5,000 UNITS/ML, 1ML SQ SCH ×3 (00:44→17:41)
[2021-02-07] MEDS: INSULIN LISPRO 100 UNITS/ML, PEN SQ-INSULIN SCH ×4 (02:32→23:35)
[2021-02-07 04:25] LABS: BASOPHILS % (AUTO) 0 % (0-1); EOSINOPHILS % (AUTO) 0 % (1-7); LYMPHOCYTES % (AUTO) 3 % (22-44); MEAN CORPUSCULAR HEMOGLOBIN 29.1 pg (27.5-34.5); MEAN CORPUSCULAR HGB CONC 32.7 g/dL (33.2-36.2); MONOCYTES % (AUTO) 12 % (2-9); NEUTROPHILS % (AUTO) 85 % (42-75); PLATELET COUNT 178 x10^3/uL (130-400); RED BLOOD COUNT 2.79 x10^6/uL (4.38-5.82)
[2021-02-07 04:43] LABS: CALCIUM 8.5 mg/dL (8.5-10.1); CHLORIDE 91 mmol/L (98-107)
[2021-02-07 04:47] LABS: ANION GAP 10 mmol/L (5-15); CREATININE 5.66 mg/dL (0.7-1.3)
[2021-02-07] MEDS: CHOLECALCIFEROL 1,000 UNIT TABLET PO SCH (08:00)
[2021-02-07] MEDS: PANTOPRAZOLE 40 MG IV IV SCH (08:00)
[2021-02-07] MEDS: ASPIRIN 81 MG TABLET CHEW PO SCH (08:00)
[2021-02-07] MEDS: CALCITRIOL 1 MCG/ML SOL NG SCH (08:02)
[2021-02-07] MEDS: LOSARTAN 25MG TABLET PO SCH ×2 (08:04→21:08)
[2021-02-07] MEDS: DOCUSATE 50 MG/5 ML, 10ML UDC NG SCH (08:04)
[2021-02-07] MEDS: CARVEDILOL 25 MG TABLET PO SCH ×2 (08:04→21:08)
[2021-02-07] MEDS: AMLODIPINE 5 MG TABLET PO SCH (08:05)
[2021-02-07] MEDS: DOXAZOSIN 2MG TABLET PO SCH (12:00)
[2021-02-07] MEDS ORDERED: SUCCINYLCHOLINE 20 MG/ML, 10ML ONE (15:47)
[2021-02-07] MEDS ORDERED: ETOMIDATE 20 MG/10 ML ONE (15:47)
[2021-02-07] MEDS ORDERED: INSULIN LISPRO 100 UNITS/ML, PEN SQ-INSULIN SCH (16:00)
[2021-02-07] MEDS ORDERED: PROPOFOL 100 ML IV ONE (16:11)
[2021-02-07] MEDS ORDERED: PHARMACY MAY ADJ FOR RENAL FX MC SCH (16:30)
[2021-02-07] MEDS ORDERED: VANCOMYCIN PER PHARMACY MC PRN (16:30)
[2021-02-07] MEDS ORDERED: PHARMACOKINETIC MONITORING MC PRN (17:00)
[2021-02-07] MEDS ORDERED: PHARMACOKINETIC CONSULTATION MC ONE (17:00)
[2021-02-07] MEDS ORDERED: VANCOMYCIN 2,100 MG in SODIUM CHLORIDE 0.9% 500 ML IV ONE (17:30)
[2021-02-07] MEDS: PIPERACILLIN/TAZO 2.25 GM in SODIUM CHLORIDE 0.9% 50 ML IV SCH (17:41)
[2021-02-07] MEDS: ATORVASTATIN 80 MG TABLET PO SCH (20:52)
[2021-02-07] MEDS: MELATONIN 5 MG TABLET PO SCH (20:52)
[2021-02-07] MEDS: INSULIN GLARGINE 100 UNITS/ML, PEN SQ-INSULIN SCH (20:52)
[2021-02-07] MEDS: PROPOFOL 100 ML IV PRN ×2 (20:55→23:31)
[2021-02-07] MEDS: DARBEPOETIN 100 MCG/ML SQ SCH (21:00)
[2021-02-08] VITALS (15 sets, daily range): BP systolic 119–148; BP diastolic 46–67
[2021-02-08] MEDS: PIPERACILLIN/TAZO 2.25 GM in SODIUM CHLORIDE 0.9% 50 ML IV SCH ×3 (00:18→16:57)
[2021-02-08] MEDS: HEPARIN 5,000 UNITS/ML, 1ML SQ SCH ×3 (00:19→16:57)
[2021-02-08] MEDS: DARBEPOETIN 100 MCG/ML SQ SCH (00:46)
[2021-02-08] MEDS: PROPOFOL 100 ML IV PRN ×4 (02:59→20:26)
[2021-02-08] MEDS: INSULIN LISPRO 100 UNITS/ML, PEN SQ-INSULIN SCH ×4 (05:35→23:30)
[2021-02-08 06:22] LABS: MEAN CORPUSCULAR HEMOGLOBIN 29.1 pg (27.5-34.5); MEAN CORPUSCULAR HGB CONC 33.1 g/dL (33.2-36.2); MEAN PLATELET VOLUME 9.2 fL (7.4-10.4); PLATELET COUNT 186 x10^3/uL (130-400); RED BLOOD COUNT 2.73 x10^6/uL (4.38-5.82); RED CELL DISTRIBUTION WIDTH 13.8 % (9.4-14.8)
[2021-02-08 06:35] LABS: ALBUMIN 2.3 g/dL (3.4-5.0); ANION GAP 12 mmol/L (5-15); CALCIUM 8.4 mg/dL (8.5-10.1); CHLORIDE 96 mmol/L (98-107)
[2021-02-08 06:39] LABS: % IRON SATURATION 20 % (20-55); ALANINE AMINOTRANSFERASE 30 U/L (12-78); ALKALINE PHOSPHATASE 77 U/L (45-117); BILIRUBIN,TOTAL 0.8 mg/dL (0.2-1.0); CREATININE 5.61 mg/dL (0.7-1.3); IRON LEVEL 30 mcg/dL (65-175); TOTAL IRON BINDING CAPACITY 153 mcg/dL (250-450); TOTAL PROTEIN 6.3 g/dL (6.4-8.2)
[2021-02-08 06:44] LABS: BAND#(MANUAL) 0.42 x10^3/uL; BANDS%(MANUAL) 3 % (0-7); LYMPH#(MANUAL) 0.84 x10^3/uL (1-3.4); LYMPHS% (MANUAL) 6 % (22-44); MONOS#(MANUAL) 0.98 x10^3/uL (0.3-2.7); MONOS% (MANUAL) 7 % (2-9); SEG#(MANUAL) 11.76 x10^3/uL (1.8-6.8); SEGS% (MANUAL) 84 % (42-75)
[2021-02-08 06:45] LABS: ANISOCYTOSIS 1+
[2021-02-08 06:54] LABS: <PLATELET ESTIMATE> ADEQUATE; <PLT MORPHOLOGY> NORMAL PLT MORPH; OVALOCYTES 1+; TEAR DROPS 1+
[2021-02-08] MEDS: DOCUSATE 50 MG/5 ML, 10ML UDC NG SCH (09:00)
[2021-02-08] MEDS: CHOLECALCIFEROL 1,000 UNIT TABLET PO SCH (10:05)
[2021-02-08] MEDS: PANTOPRAZOLE 40 MG IV IV SCH (10:05)
[2021-02-08] MEDS: AMLODIPINE 5 MG TABLET PO SCH (10:06)
[2021-02-08] MEDS: ASPIRIN 81 MG TABLET CHEW PO SCH (10:06)
[2021-02-08] MEDS: CARVEDILOL 25 MG TABLET PO SCH ×2 (10:06→22:10)
[2021-02-08] MEDS: DOXAZOSIN 2MG TABLET PO SCH (10:06)
[2021-02-08] MEDS: LOSARTAN 25MG TABLET PO SCH ×2 (10:07→21:00)
[2021-02-08] MEDS: INSULIN GLARGINE 100 UNITS/ML, PEN SQ-INSULIN SCH ×2 (10:08→20:08)
[2021-02-08] MEDS: CALCITRIOL 1 MCG/ML SOL NG SCH (10:09)
[2021-02-08 10:55] LABS: MICROSCOPIC INDICATED
[2021-02-08] MEDS: ATORVASTATIN 80 MG TABLET PO SCH (20:06)
[2021-02-09] MEDS: PROPOFOL 100 ML IV PRN (00:31)
[2021-02-09] MEDS: PIPERACILLIN/TAZO 2.25 GM in SODIUM CHLORIDE 0.9% 50 ML IV SCH ×3 (00:36→16:00)
[2021-02-09] MEDS: HEPARIN 5,000 UNITS/ML, 1ML SQ SCH ×3 (00:37→16:33)
[2021-02-09 04:35] LABS: BASOPHILS % (AUTO) 0 % (0-1); EOSINOPHILS % (AUTO) 1 % (1-7); LYMPHOCYTES % (AUTO) 6 % (22-44); MEAN CORPUSCULAR HEMOGLOBIN 28.9 pg (27.5-34.5); MEAN CORPUSCULAR HGB CONC 32.4 g/dL (33.2-36.2); MEAN PLATELET VOLUME 9.5 fL (7.4-10.4); MONOCYTES % (AUTO) 11 % (2-9); NEUTROPHILS % (AUTO) 83 % (42-75); PLATELET COUNT 224 x10^3/uL (130-400); RED BLOOD COUNT 2.94 x10^6/uL (4.38-5.82)
[2021-02-09 04:46] LABS: ALANINE AMINOTRANSFERASE 24 U/L (12-78); ALBUMIN 2.1 g/dL (3.4-5.0); ANION GAP 11 mmol/L (5-15); CALCIUM 8.3 mg/dL (8.5-10.1); CHLORIDE 98 mmol/L (98-107); CREATININE 4.72 mg/dL (0.7-1.3)
[2021-02-09 04:48] LABS: ALKALINE PHOSPHATASE 79 U/L (45-117); BILIRUBIN,TOTAL 0.7 mg/dL (0.2-1.0); TOTAL PROTEIN 6.4 g/dL (6.4-8.2)
[2021-02-09] MEDS: INSULIN LISPRO 100 UNITS/ML, PEN SQ-INSULIN SCH ×5 (06:10→23:52)
[2021-02-09] MEDS: CALCITRIOL 1 MCG/ML SOL NG SCH (08:46)
[2021-02-09] MEDS: PANTOPRAZOLE 40 MG IV IV SCH (08:46)
[2021-02-09] MEDS: CARVEDILOL 25 MG TABLET PO SCH ×2 (08:47→21:00)
[2021-02-09] MEDS: ASPIRIN 81 MG TABLET CHEW PO SCH (08:47)
[2021-02-09] MEDS: DOXAZOSIN 2MG TABLET PO SCH (08:47)
[2021-02-09] MEDS: CHOLECALCIFEROL 1,000 UNIT TABLET PO SCH (08:48)
[2021-02-09] MEDS: LOSARTAN 25MG TABLET PO SCH ×2 (08:48→21:00)
[2021-02-09] MEDS: INSULIN GLARGINE 100 UNITS/ML, PEN SQ-INSULIN SCH ×2 (09:23→20:35)
[2021-02-09] MEDS: ATORVASTATIN 80 MG TABLET PO SCH (20:26)
[2021-02-09] MEDS: MIDODRINE 5 MG TABLET PO SCH (23:52)
[2021-02-10] MEDS ORDERED: NOREPINEPHRINE 8 MG in SODIUM CHLORIDE 0.9% 242 ML IV PRN
[2021-02-10] MEDS: HEPARIN 5,000 UNITS/ML, 1ML SQ SCH ×3 (00:16→17:23)
[2021-02-10] MEDS: PIPERACILLIN/TAZO 2.25 GM in SODIUM CHLORIDE 0.9% 50 ML IV SCH (00:16)
[2021-02-10 04:54] LABS: CALCIUM 8.1 mg/dL (8.5-10.1); CHLORIDE 94 mmol/L (98-107)
[2021-02-10 05:01] LABS: ALANINE AMINOTRANSFERASE 29 U/L (12-78); ALBUMIN 1.9 g/dL (3.4-5.0); ALKALINE PHOSPHATASE 74 U/L (45-117); ANION GAP 9 mmol/L (5-15); BILIRUBIN,TOTAL 0.7 mg/dL (0.2-1.0); CREATININE 6.15 mg/dL (0.7-1.3); TOTAL PROTEIN 6.5 g/dL (6.4-8.2); TRIGLYCERIDES 149 mg/dL (50-200); VANCOMYCIN,RANDOM 17.1 mcg/mL
[2021-02-10] MEDS: INSULIN LISPRO 100 UNITS/ML, PEN SQ-INSULIN SCH ×4 (05:49→23:16)
[2021-02-10 05:57] LABS: BASOPHILS % (AUTO) 0 % (0-1); EOSINOPHILS % (AUTO) 1 % (1-7); LYMPHOCYTES % (AUTO) 5 % (22-44); MEAN CORPUSCULAR HEMOGLOBIN 28.9 pg (27.5-34.5); MEAN CORPUSCULAR HGB CONC 32.8 g/dL (33.2-36.2); MONOCYTES % (AUTO) 14 % (2-9); NEUTROPHILS % (AUTO) 80 % (42-75); PLATELET COUNT 248 x10^3/uL (130-400); RED BLOOD COUNT 2.86 x10^6/uL (4.38-5.82); RED CELL DISTRIBUTION WIDTH 13.9 % (9.4-14.8)
[2021-02-10] MEDS: CALCITRIOL 1 MCG/ML SOL NG SCH ×2 (09:00→17:23)
[2021-02-10] MEDS: INSULIN GLARGINE 100 UNITS/ML, PEN SQ-INSULIN SCH ×2 (10:40→21:44)
[2021-02-10] MEDS: PANTOPRAZOLE 40 MG IV IV SCH (10:40)
[2021-02-10] MEDS: MIDODRINE 5 MG TABLET PO SCH ×3 (10:41→21:35)
[2021-02-10] MEDS: LOSARTAN 25MG TABLET PO SCH ×2 (10:41→21:35)
[2021-02-10] MEDS: DOXAZOSIN 2MG TABLET PO SCH (10:41)
[2021-02-10] MEDS: CHOLECALCIFEROL 1,000 UNIT TABLET PO SCH (10:42)
[2021-02-10] MEDS: CARVEDILOL 25 MG TABLET PO SCH ×2 (10:42→21:36)
[2021-02-10] MEDS: ASPIRIN 81 MG TABLET CHEW PO SCH (10:42)
[2021-02-10] MEDS: PIPERACILLIN/TAZO 2.25 GM in DEXTROSE 5% 50 ML IV SCH (17:22)
[2021-02-10] MEDS: ATORVASTATIN 80 MG TABLET PO SCH (21:36)
[2021-02-10] MEDS ORDERED: VANCOMYCIN 1,700 MG in SODIUM CHLORIDE 0.9% 250 ML IV ONE (22:00)
[2021-02-11] MEDS: PIPERACILLIN/TAZO 2.25 GM in DEXTROSE 5% 50 ML IV SCH ×3 (00:23→21:29)
[2021-02-11] MEDS: HEPARIN 5,000 UNITS/ML, 1ML SQ SCH ×3 (00:24→16:36)
[2021-02-11] MEDS: ACETAMINOPHEN 500 MG TABLET PO PRN (00:24)
[2021-02-11] MEDS: DIPHENHYDRAMINE 25 MG CAPSULE PO PRN (00:24)
[2021-02-11 05:05] LABS: ALANINE AMINOTRANSFERASE 23 U/L (12-78); ANION GAP 11 mmol/L (5-15); CALCIUM 7.9 mg/dL (8.5-10.1); CHLORIDE 94 mmol/L (98-107)
[2021-02-11 05:07] LABS: ALKALINE PHOSPHATASE 72 U/L (45-117); BILIRUBIN,TOTAL 0.6 mg/dL (0.2-1.0); TOTAL PROTEIN 6.1 g/dL (6.4-8.2)
[2021-02-11 06:33] LABS: BASOPHILS % (AUTO) 0 % (0-1); EOSINOPHILS % (AUTO) 1 % (1-7); LYMPHOCYTES % (AUTO) 7 % (22-44); MEAN CORPUSCULAR HEMOGLOBIN 29.4 pg (27.5-34.5); MEAN CORPUSCULAR HGB CONC 33.4 g/dL (33.2-36.2); MEAN PLATELET VOLUME 8.9 fL (7.4-10.4); MONOCYTES % (AUTO) 16 % (2-9); NEUTROPHILS % (AUTO) 76 % (42-75); PLATELET COUNT 223 x10^3/uL (130-400); RED BLOOD COUNT 2.61 x10^6/uL (4.38-5.82); RED CELL DISTRIBUTION WIDTH 13.8 % (9.4-14.8)
[2021-02-11] MEDS: INSULIN LISPRO 100 UNITS/ML, PEN SQ-INSULIN SCH ×4 (06:49→22:06)
[2021-02-11] MEDS: ALBUMIN HUMAN 25% 100 ML IV PRN ×2 (09:21→09:26)
[2021-02-11] MEDS: MIDODRINE 5 MG TABLET PO SCH ×3 (09:22→21:28)
[2021-02-11] MEDS: ASPIRIN 81 MG TABLET CHEW PO SCH (09:22)
[2021-02-11] MEDS: CHOLECALCIFEROL 1,000 UNIT TABLET PO SCH (09:22)
[2021-02-11] MEDS: PANTOPRAZOLE 40 MG IV IV SCH (09:23)
[2021-02-11] MEDS: CALCITRIOL 1 MCG/ML SOL NG SCH (09:26)
[2021-02-11] MEDS: INSULIN GLARGINE 100 UNITS/ML, PEN SQ-INSULIN SCH ×2 (09:30→21:31)
[2021-02-11 14:00] VITALS: BP 133/65
[2021-02-11] MEDS ORDERED: LORazepam 2 MG/ML, 1ML IVPush ONE (16:30)
[2021-02-11 20:15] VITALS: BP 130/77
[2021-02-11] MEDS: ATORVASTATIN 80 MG TABLET PO SCH (21:29)
[2021-02-12] MEDS ORDERED: INSULIN LISPRO 100 UNIT/ML, 3ML VIAL SQ-INSULIN ONE (00:30)
[2021-02-12 01:03] VITALS: BP 121/52
[2021-02-12] MEDS: HEPARIN 5,000 UNITS/ML, 1ML SQ SCH ×3 (01:24→17:12)
[2021-02-12] MEDS: PIPERACILLIN/TAZO 2.25 GM in DEXTROSE 5% 50 ML IV SCH ×3 (04:04→21:15)
[2021-02-12 08:03] VITALS: BP 121/69
[2021-02-12] MEDS: MIDODRINE 5 MG TABLET PO SCH ×3 (09:30→21:17)
[2021-02-12] MEDS: CHOLECALCIFEROL 1,000 UNIT TABLET PO SCH (09:30)
[2021-02-12] MEDS: ASPIRIN 81 MG TABLET CHEW PO SCH (09:30)
[2021-02-12] MEDS: PANTOPRAZOLE 40 MG IV IV SCH (09:31)
[2021-02-12] MEDS: INSULIN GLARGINE 100 UNITS/ML, PEN SQ-INSULIN SCH ×2 (09:32→21:17)
[2021-02-12] MEDS: INSULIN LISPRO 100 UNITS/ML, PEN SQ-INSULIN SCH ×4 (09:33→21:16)
[2021-02-12 10:44] LABS: ALANINE AMINOTRANSFERASE 26 U/L (12-78); ALBUMIN 2.5 g/dL (3.4-5.0); ANION GAP 13 mmol/L (5-15); CHLORIDE 95 mmol/L (98-107); CREATININE 5.53 mg/dL (0.7-1.3)
[2021-02-12 10:46] LABS: ALKALINE PHOSPHATASE 86 U/L (45-117); BILIRUBIN,TOTAL 0.6 mg/dL (0.2-1.0); TOTAL PROTEIN 6.5 g/dL (6.4-8.2)
[2021-02-12 10:56] LABS: BASOPHILS % (AUTO) 1 % (0-1); EOSINOPHILS % (AUTO) 1 % (1-7); LYMPHOCYTES % (AUTO) 8 % (22-44); MEAN CORPUSCULAR HEMOGLOBIN 29.2 pg (27.5-34.5); MEAN CORPUSCULAR HGB CONC 33.1 g/dL (33.2-36.2); MEAN PLATELET VOLUME 8.7 fL (7.4-10.4); MONOCYTES % (AUTO) 13 % (2-9); NEUTROPHILS % (AUTO) 78 % (42-75); PLATELET COUNT 223 x10^3/uL (130-400); RED BLOOD COUNT 2.31 x10^6/uL (4.38-5.82); RED CELL DISTRIBUTION WIDTH 13.6 % (9.4-14.8)
[2021-02-12] MEDS: CALCITRIOL 1 MCG/ML SOL NG SCH (11:43)
[2021-02-12 13:24] VITALS: BP 124/71
[2021-02-12 20:00] VITALS: BP 117/63
[2021-02-12] MEDS: ATORVASTATIN 80 MG TABLET PO SCH (21:17)
[2021-02-12 21:28] LABS: CLOSTRIDIUM DIFFICILE ANTIGEN NEGATIVE; CLOSTRIDIUM DIFFICILE TOXIN NEGATIVE (Negative)
[2021-02-13 00:04] VITALS: BP 136/70
[2021-02-13] MEDS: HEPARIN 5,000 UNITS/ML, 1ML SQ SCH ×3 (01:00→18:39)
[2021-02-13] MEDS: PIPERACILLIN/TAZO 2.25 GM in DEXTROSE 5% 50 ML IV SCH ×3 (04:44→19:48)
[2021-02-13 08:45] LABS: BASOPHILS % (AUTO) 1 % (0-1); EOSINOPHILS % (AUTO) 1 % (1-7); LYMPHOCYTES % (AUTO) 6 % (22-44); MEAN CORPUSCULAR HEMOGLOBIN 29.2 pg (27.5-34.5); MEAN CORPUSCULAR HGB CONC 33.4 g/dL (33.2-36.2); MEAN PLATELET VOLUME 8.2 fL (7.4-10.4); MONOCYTES % (AUTO) 12 % (2-9); NEUTROPHILS % (AUTO) 80 % (42-75); PLATELET COUNT 262 x10^3/uL (130-400); RED BLOOD COUNT 2.43 x10^6/uL (4.38-5.82); RED CELL DISTRIBUTION WIDTH 13.3 % (9.4-14.8)
[2021-02-13 08:55] LABS: ALBUMIN 2.3 g/dL (3.4-5.0); ANION GAP 11 mmol/L (5-15); CALCIUM 8.1 mg/dL (8.5-10.1); CHLORIDE 92 mmol/L (98-107)
[2021-02-13 09:00] VITALS: BP 156/78
[2021-02-13] MEDS: ASPIRIN 81 MG TABLET CHEW PO SCH (09:16)
[2021-02-13] MEDS: MIDODRINE 5 MG TABLET PO SCH ×3 (09:16→20:48)
[2021-02-13] MEDS: CALCITRIOL 1 MCG/ML SOL NG SCH (09:16)
[2021-02-13] MEDS: CHOLECALCIFEROL 1,000 UNIT TABLET PO SCH (09:16)
[2021-02-13] MEDS: INSULIN GLARGINE 100 UNITS/ML, PEN SQ-INSULIN SCH ×2 (09:17→20:47)
[2021-02-13] MEDS: INSULIN LISPRO 100 UNITS/ML, PEN SQ-INSULIN SCH ×4 (09:18→20:48)
[2021-02-13] MEDS ORDERED: ALBUMIN HUMAN 25% 100 ML IV PRN (12:30)
[2021-02-13 15:26] VITALS: BP 120/63
[2021-02-13] MEDS ORDERED: VANCOMYCIN 1,700 MG in SODIUM CHLORIDE 0.9% 250 ML IV ONE (16:00)
[2021-02-13 19:15] VITALS: BP 139/73
[2021-02-13] MEDS: ATORVASTATIN 80 MG TABLET PO SCH (20:48)
[2021-02-13] MEDS: DIPHENHYDRAMINE 25 MG CAPSULE PO PRN (20:48)
[2021-02-14 00:34] VITALS: BP 142/68
[2021-02-14] MEDS: HEPARIN 5,000 UNITS/ML, 1ML SQ SCH ×3 (01:00→18:46)
[2021-02-14] MEDS: PIPERACILLIN/TAZO 2.25 GM in DEXTROSE 5% 50 ML IV SCH ×2 (04:56→18:15)
[2021-02-14] MEDS ORDERED: BISACODYL 5 MG EC TABLET PO PRN (08:00)
[2021-02-14 08:21] LABS: BASOPHILS % (AUTO) 1 % (0-1); EOSINOPHILS % (AUTO) 2 % (1-7); LYMPHOCYTES % (AUTO) 9 % (22-44); MEAN CORPUSCULAR HEMOGLOBIN 29.5 pg (27.5-34.5); MEAN CORPUSCULAR HGB CONC 33.7 g/dL (33.2-36.2); MEAN PLATELET VOLUME 7.9 fL (7.4-10.4); MONOCYTES % (AUTO) 13 % (2-9); NEUTROPHILS % (AUTO) 75 % (42-75); PLATELET COUNT 273 x10^3/uL (130-400); RED BLOOD COUNT 2.42 x10^6/uL (4.38-5.82); RED CELL DISTRIBUTION WIDTH 13.7 % (9.4-14.8)
[2021-02-14 08:29] LABS: ALBUMIN 2.5 g/dL (3.4-5.0); ANION GAP 13 mmol/L (5-15); CALCIUM 8.4 mg/dL (8.5-10.1); CHLORIDE 91 mmol/L (98-107); CREATININE 7.99 mg/dL (0.7-1.3)
[2021-02-14 08:40] VITALS: BP 147/59
[2021-02-14] MEDS: INSULIN LISPRO 100 UNITS/ML, PEN SQ-INSULIN SCH ×4 (08:47→22:39)
[2021-02-14] MEDS: INSULIN GLARGINE 100 UNITS/ML, PEN SQ-INSULIN SCH ×2 (08:47→22:40)
[2021-02-14] MEDS: CHOLECALCIFEROL 1,000 UNIT TABLET PO SCH (08:48)
[2021-02-14] MEDS: CALCITRIOL 0.25 MCG CAPSULE PO SCH (08:48)
[2021-02-14] MEDS: ASPIRIN 81 MG TABLET CHEW PO SCH (08:48)
[2021-02-14] MEDS: MIDODRINE 5 MG TABLET PO SCH ×3 (08:53→22:37)
[2021-02-14 13:06] VITALS: BP 129/73
[2021-02-14 19:48] VITALS: BP 112/60
[2021-02-14] MEDS: ATORVASTATIN 80 MG TABLET PO SCH (22:36)
[2021-02-14 22:43] VITALS: BP 121/57
[2021-02-14] MEDS: DARBEPOETIN 100 MCG/ML SQ SCH (22:59)
[2021-02-15] VITALS (11 sets, daily range): BP systolic 107–135; BP diastolic 57–78
[2021-02-15] MEDS: HEPARIN 5,000 UNITS/ML, 1ML SQ SCH ×2 (01:00→08:19)
[2021-02-15] MEDS: PIPERACILLIN/TAZO 2.25 GM in DEXTROSE 5% 50 ML IV SCH ×3 (02:27→18:02)
[2021-02-15] MEDS: INSULIN LISPRO 100 UNITS/ML, PEN SQ-INSULIN SCH ×4 (07:00→20:44)
[2021-02-15] MEDS: MIDODRINE 5 MG TABLET PO SCH (08:19)
[2021-02-15] MEDS: ASPIRIN 81 MG TABLET CHEW PO SCH (08:19)
[2021-02-15] MEDS: CHOLECALCIFEROL 1,000 UNIT TABLET PO SCH (08:19)
[2021-02-15] MEDS: CALCITRIOL 0.25 MCG CAPSULE PO SCH (08:19)
[2021-02-15] MEDS: INSULIN GLARGINE 100 UNITS/ML, PEN SQ-INSULIN SCH ×2 (08:20→20:44)
--- NOTE | 2021-02-15 09:47 | NUR ---
MOSES COSTELLO Fall Risk Medication(s) (BISADCODYL, DIPHENHYDRAMINE, LACTULOSE) present and receiving anticoagulants (HEPARIN). Signed: 02/15/21 at 0949 by Cesar VEGAS
[2021-02-15 14:56] LABS: BASOPHILS % (AUTO) 1 % (0-1); EOSINOPHILS % (AUTO) 1 % (1-7); LYMPHOCYTES % (AUTO) 7 % (22-44); MEAN CORPUSCULAR HEMOGLOBIN 29.7 pg (27.5-34.5); MEAN CORPUSCULAR HGB CONC 33.9 g/dL (33.2-36.2); MEAN PLATELET VOLUME 7.8 fL (7.4-10.4); MONOCYTES % (AUTO) 12 % (2-9); NEUTROPHILS % (AUTO) 79 % (42-75); PLATELET COUNT 244 x10^3/uL (130-400); RED BLOOD COUNT 2.27 x10^6/uL (4.38-5.82); RED CELL DISTRIBUTION WIDTH 13.8 % (9.4-14.8)
[2021-02-15 15:04] LABS: ANION GAP 11 mmol/L (5-15); CALCIUM 8.3 mg/dL (8.5-10.1); CHLORIDE 92 mmol/L (98-107); CREATININE 6.24 mg/dL (0.7-1.3)
[2021-02-15 15:05] LABS: ALBUMIN 2.3 g/dL (3.4-5.0)
[2021-02-15] MEDS: ATORVASTATIN 80 MG TABLET PO SCH (20:43)
[2021-02-16] MEDS: DIPHENHYDRAMINE 25 MG CAPSULE PO PRN ×2 (00:02→20:51)
[2021-02-16 00:25] VITALS: BP 116/65
[2021-02-16] MEDS: PIPERACILLIN/TAZO 2.25 GM in DEXTROSE 5% 50 ML IV SCH ×3 (02:44→18:14)
[2021-02-16 06:04] LABS: BASOPHILS % (AUTO) 1 % (0-1); EOSINOPHILS % (AUTO) 1 % (1-7); LYMPHOCYTES % (AUTO) 12 % (22-44); MEAN CORPUSCULAR HEMOGLOBIN 30.3 pg (27.5-34.5); MEAN CORPUSCULAR HGB CONC 34.1 g/dL (33.2-36.2); MEAN PLATELET VOLUME 8.2 fL (7.4-10.4); MONOCYTES % (AUTO) 12 % (2-9); NEUTROPHILS % (AUTO) 75 % (42-75); PLATELET COUNT 251 x10^3/uL (130-400); RED BLOOD COUNT 2.29 x10^6/uL (4.38-5.82); RED CELL DISTRIBUTION WIDTH 13.8 % (9.4-14.8)
[2021-02-16 06:16] LABS: ALBUMIN 2.8 g/dL (3.4-5.0); ANION GAP 13 mmol/L (5-15); CALCIUM 8.3 mg/dL (8.5-10.1); CHLORIDE 93 mmol/L (98-107)
[2021-02-16 06:22] LABS: ALANINE AMINOTRANSFERASE 159 U/L (12-78); ALKALINE PHOSPHATASE 73 U/L (45-117); BILIRUBIN,TOTAL 0.7 mg/dL (0.2-1.0); CREATININE 7.09 mg/dL (0.7-1.3); TOTAL PROTEIN 7.2 g/dL (6.4-8.2)
[2021-02-16 06:31] VITALS: BP 135/71
[2021-02-16] MEDS: INSULIN LISPRO 100 UNITS/ML, PEN SQ-INSULIN SCH ×4 (07:00→20:51)
[2021-02-16] MEDS: CHOLECALCIFEROL 1,000 UNIT TABLET PO SCH (07:22)
[2021-02-16] MEDS: CALCITRIOL 0.25 MCG CAPSULE PO SCH (07:22)
[2021-02-16] MEDS: INSULIN GLARGINE 100 UNITS/ML, PEN SQ-INSULIN SCH ×2 (07:23→20:36)
[2021-02-16] MEDS ORDERED: DEXTROSE 50%, 50ML SYRINGE ONE (10:48)
[2021-02-16] MEDS ORDERED: DEXTROSE 50%, 50ML SYRINGE IVPush ONE (11:00)
[2021-02-16] MEDS: ACETAMINOPHEN 500 MG TABLET PO PRN ×2 (12:42→20:51)
[2021-02-16 18:33] VITALS: BP 130/57
[2021-02-16] MEDS: ATORVASTATIN 80 MG TABLET PO SCH (20:51)
[2021-02-17] VITALS (11 sets, daily range): BP systolic 96–145; BP diastolic 55–89
[2021-02-17] MEDS: LORazepam 0.5MG TABLET PO PRN (00:54)
[2021-02-17] MEDS: PIPERACILLIN/TAZO 2.25 GM in DEXTROSE 5% 50 ML IV SCH ×3 (02:36→21:04)
[2021-02-17] MEDS: INSULIN LISPRO 100 UNITS/ML, PEN SQ-INSULIN SCH ×4 (08:00→21:04)
[2021-02-17] MEDS: INSULIN GLARGINE 100 UNITS/ML, PEN SQ-INSULIN SCH ×2 (08:23→21:03)
[2021-02-17 09:18] LABS: ALBUMIN 2.8 g/dL (3.4-5.0); ANION GAP 13 mmol/L (5-15); CALCIUM 8.2 mg/dL (8.5-10.1); CHLORIDE 94 mmol/L (98-107); CREATININE 5.84 mg/dL (0.7-1.3)
[2021-02-17] MEDS ORDERED: LIDOCAINE 1%, 20ML ONE (11:05)
[2021-02-17 11:10] LABS: BASOPHILS % (AUTO) 1 % (0-1); EOSINOPHILS % (AUTO) 2 % (1-7); LYMPHOCYTES % (AUTO) 9 % (22-44); MEAN CORPUSCULAR HEMOGLOBIN 29.7 pg (27.5-34.5); MEAN PLATELET VOLUME 8.3 fL (7.4-10.4); MONOCYTES % (AUTO) 11 % (2-9); NEUTROPHILS % (AUTO) 77 % (42-75); PLATELET COUNT 268 x10^3/uL (130-400); RED BLOOD COUNT 2.41 x10^6/uL (4.38-5.82); RED CELL DISTRIBUTION WIDTH 14.3 % (9.4-14.8)
[2021-02-17] MEDS ORDERED: FENTANYL PF 100 MCG/2ML ONE (11:49)
[2021-02-17] MEDS ORDERED: MIDAZOLAM 1 MG/ML, 5ML ONE (11:49)
[2021-02-17] MEDS ORDERED: NALOXONE 1 MG/ML, 2ML ONE (11:49)
[2021-02-17] MEDS ORDERED: FLUMAZENIL 0.1 MG/1 ML, 5ML ONE (11:49)
[2021-02-17] MEDS: CHOLECALCIFEROL 1,000 UNIT TABLET PO SCH (13:37)
[2021-02-17] MEDS: CALCITRIOL 0.25 MCG CAPSULE PO SCH (13:38)
[2021-02-17] MEDS: ATORVASTATIN 80 MG TABLET PO SCH (21:04)
[2021-02-17] MEDS: MELATONIN 5 MG TABLET PO PRN (21:05)
[2021-02-17] MEDS: DIPHENHYDRAMINE 25 MG CAPSULE PO PRN (23:12)
[2021-02-18] VITALS (8 sets, daily range): BP systolic 73–148; BP diastolic 39–67
[2021-02-18] MEDS: LORazepam 0.5MG TABLET PO PRN (00:30)
[2021-02-18] MEDS ORDERED: CYCLOBENZAPRINE 10 MG TABLET PO ONE (01:00)
[2021-02-18] MEDS ORDERED: ZIPRASIDONE 20 MG INJ IM ONE ×2 (03:50→04:00)
[2021-02-18] MEDS: BISACODYL 10 MG SUPP PR PRN (03:54)
[2021-02-18] MEDS ORDERED: BISACODYL 10 MG SUPP PR PRN (04:00)
[2021-02-18 05:32] LABS: BASOPHILS % (AUTO) 1 % (0-1); EOSINOPHILS % (AUTO) 2 % (1-7); LYMPHOCYTES % (AUTO) 10 % (22-44); MEAN CORPUSCULAR HEMOGLOBIN 30.3 pg (27.5-34.5); MEAN CORPUSCULAR HGB CONC 33.6 g/dL (33.2-36.2); MEAN PLATELET VOLUME 8.4 fL (7.4-10.4); MONOCYTES % (AUTO) 12 % (2-9); NEUTROPHILS % (AUTO) 75 % (42-75); PLATELET COUNT 226 x10^3/uL (130-400); RED BLOOD COUNT 2.09 x10^6/uL (4.38-5.82); RED CELL DISTRIBUTION WIDTH 14.2 % (9.4-14.8)
[2021-02-18 05:40] LABS: ALANINE AMINOTRANSFERASE 170 U/L (12-78); ALBUMIN 2.5 g/dL (3.4-5.0); ANION GAP 12 mmol/L (5-15); CHLORIDE 90 mmol/L (98-107); CREATININE 6.81 mg/dL (0.7-1.3)
[2021-02-18] MEDS: PIPERACILLIN/TAZO 2.25 GM in DEXTROSE 5% 50 ML IV SCH ×3 (05:41→22:23)
[2021-02-18 05:42] LABS: ALKALINE PHOSPHATASE 82 U/L (45-117); BILIRUBIN,TOTAL 0.8 mg/dL (0.2-1.0); TOTAL PROTEIN 6.6 g/dL (6.4-8.2)
[2021-02-18] MEDS: PROPOFOL 100 ML IV PRN ×2 (07:30→14:58)
[2021-02-18] MEDS ORDERED: PROPOFOL 100 ML IV ONE (08:05)
[2021-02-18] MEDS: CALCITRIOL 0.25 MCG CAPSULE PO SCH (09:00)
[2021-02-18] MEDS: CHOLECALCIFEROL 1,000 UNIT TABLET PO SCH (09:00)
[2021-02-18] MEDS ORDERED: ATROPINE SYRINGE 0.1 MG/ML, 10ML ONE ×2 (09:41→19:55)
[2021-02-18] MEDS ORDERED: FENTANYL PF 100 MCG/2ML ONE ×2 (09:52→10:27)
[2021-02-18] MEDS ORDERED: PHENYLEPHRINE 50 MG in SODIUM CHLORIDE 0.9% 245 ML IV PRN (10:00)
[2021-02-18] MEDS ORDERED: VASOPRESSIN 20 UNIT in SODIUM CHLORIDE 0.9% 99 ML IV PRN (10:00)
[2021-02-18] MEDS ORDERED: DOPAMINE/D5W PMX 250 ML IV PRN (10:00)
[2021-02-18 10:24] LABS: MICROSCOPIC INDICATED
[2021-02-18] MEDS ORDERED: SODIUM CHLORIDE 0.9% IVPB ONE (10:30)
[2021-02-18] MEDS ORDERED: DESMOPRESSIN IVPB ONE (10:30)
[2021-02-18] MEDS: INSULIN LISPRO 100 UNITS/ML, PEN SQ-INSULIN SCH ×3 (11:00→22:23)
[2021-02-18] MEDS ORDERED: EPINEPHRINE SYRINGE 0.1 MG/ML, 10ML ONE ×2 (11:01→19:55)
[2021-02-18] MEDS: INSULIN GLARGINE 100 UNITS/ML, PEN SQ-INSULIN SCH ×2 (12:22→22:23)
--- NOTE | 2021-02-18 13:42 | NUR ---
TF recs if needed: Vital AF 1.2 w/ end goal rate of 60 mL/hr (ON propofol); 70 mL/hr (OFF propofol). Addendum: 02/18/21 at [address] Amended: Links added.
[2021-02-18] MEDS ORDERED: SODIUM CHLORIDE 0.9% 1,000 ML IV SCH (14:00)
[2021-02-18] MEDS ORDERED: NOREPINEPHRINE 8 MG in SODIUM CHLORIDE 0.9% 242 ML IV PRN ×3 (14:00→16:00)
[2021-02-18] MEDS ORDERED: PROPOFOL 100 ML IV PRN (15:00)
[2021-02-18] MEDS ORDERED: GLUCAGON 1 MG IM PRN (15:00)
[2021-02-18] MEDS ORDERED: DEXTROSE 4 GM TAB.CHEW PO PRN (15:00)
[2021-02-18] MEDS ORDERED: FENTANYL PF 1,000 MCG in SODIUM CHLORIDE 0.9% 80 ML IV PRN (15:00)
[2021-02-18] MEDS ORDERED: PHARMACY MAY ADJ FOR RENAL FX MC SCH (15:00)
[2021-02-18] MEDS ORDERED: DEXTROSE 50%, 50ML SYRINGE IVPush PRN (15:00)
[2021-02-18] MEDS ORDERED: LIDOCAINE-MPF 1%, 2ML ENDO PRN (15:00)
[2021-02-18 16:50] LABS: BASOPHILS % (AUTO) 0 % (0-1); EOSINOPHILS % (AUTO) 0 % (1-7); LYMPHOCYTES % (AUTO) 4 % (22-44); MEAN CORPUSCULAR HEMOGLOBIN 29.9 pg (27.5-34.5); MEAN CORPUSCULAR HGB CONC 32.7 g/dL (33.2-36.2); MEAN PLATELET VOLUME 8.5 fL (7.4-10.4); MONOCYTES % (AUTO) 8 % (2-9); NEUTROPHILS % (AUTO) 88 % (42-75); PLATELET COUNT 258 x10^3/uL (130-400); RED BLOOD COUNT 2.82 x10^6/uL (4.38-5.82); RED CELL DISTRIBUTION WIDTH 14.4 % (9.4-14.8)
[2021-02-18 16:58] LABS: ALANINE AMINOTRANSFERASE 389 U/L (12-78); ALBUMIN 2.3 g/dL (3.4-5.0); ANION GAP 16 mmol/L (5-15); CALCIUM 7.9 mg/dL (8.5-10.1); CHLORIDE 88 mmol/L (98-107)
[2021-02-18 17:00] LABS: ALKALINE PHOSPHATASE 83 U/L (45-117); BILIRUBIN,TOTAL 1.5 mg/dL (0.2-1.0); TOTAL PROTEIN 6.2 g/dL (6.4-8.2)
[2021-02-18] MEDS: MIDAZOLAM HCL 50 MG in SODIUM CHLORIDE 0.9% 40 ML IV PRN (18:19)
[2021-02-18] MEDS: ALBUMIN HUMAN 25% 100 ML IV PRN (19:45)
[2021-02-18] MEDS ORDERED: CODE BLUE RESPONSE XX ONE (19:55)
[2021-02-18] MEDS: ATORVASTATIN 80 MG TABLET PO SCH (22:23)
[2021-02-18] MEDS: SODIUM CHLORIDE FLUSH 10ML SYR IVF SCH (22:24)
[2021-02-19] MEDS: INSULIN LISPRO 100 UNITS/ML, PEN SQ-INSULIN SCH ×5 (03:40→20:13)
[2021-02-19 04:53] LABS: BASOPHILS % (AUTO) 1 % (0-1); EOSINOPHILS % (AUTO) 1 % (1-7); LYMPHOCYTES % (AUTO) 9 % (22-44); MEAN CORPUSCULAR HEMOGLOBIN 30.4 pg (27.5-34.5); MEAN PLATELET VOLUME 8.2 fL (7.4-10.4); MONOCYTES % (AUTO) 8 % (2-9); NEUTROPHILS % (AUTO) 81 % (42-75); PLATELET COUNT 198 x10^3/uL (130-400); RED BLOOD COUNT 2.23 x10^6/uL (4.38-5.82); RED CELL DISTRIBUTION WIDTH 14.3 % (9.4-14.8)
[2021-02-19 05:06] LABS: CHLORIDE 96 mmol/L (98-107)
[2021-02-19 05:11] LABS: ANION GAP 11 mmol/L (5-15); CALCIUM 8.3 mg/dL (8.5-10.1); CREATININE 5.83 mg/dL (0.7-1.3)
[2021-02-19] MEDS: PIPERACILLIN/TAZO 2.25 GM in DEXTROSE 5% 50 ML IV SCH ×3 (05:17→21:55)
[2021-02-19] MEDS: MIDAZOLAM HCL 50 MG in SODIUM CHLORIDE 0.9% 40 ML IV PRN (05:54)
[2021-02-19] MEDS: PROPOFOL 100 ML IV PRN (06:42)
[2021-02-19] MEDS: INSULIN GLARGINE 100 UNITS/ML, PEN SQ-INSULIN SCH ×2 (09:00→20:14)
[2021-02-19 10:09] VITALS: BP 119/56
[2021-02-19] MEDS: SODIUM CHLORIDE FLUSH 10ML SYR IVF SCH ×2 (10:21→21:29)
[2021-02-19 10:36] VITALS: BP 122/56
[2021-02-19] MEDS: CALCITRIOL 0.25 MCG CAPSULE PO SCH (10:38)
[2021-02-19] MEDS: CHOLECALCIFEROL 1,000 UNIT TABLET PO SCH (10:38)
[2021-02-19 11:00] VITALS: BP 91/46
[2021-02-19 12:00] VITALS: BP 122/62
[2021-02-19 13:00] VITALS: BP 115/58
[2021-02-20] VITALS (7 sets, daily range): BP systolic 106–126; BP diastolic 51–66
[2021-02-20] MEDS ORDERED: DIPHENHYDRAMINE 50 MG/ML, 1ML IVPush PRN ×2 (01:00)
[2021-02-20] MEDS: INSULIN LISPRO 100 UNITS/ML, PEN SQ-INSULIN SCH ×6 (01:13→21:36)
[2021-02-20 03:35] LABS: ANION GAP 11 mmol/L (5-15); CALCIUM 8.1 mg/dL (8.5-10.1); CHLORIDE 96 mmol/L (98-107); CREATININE 6.96 mg/dL (0.7-1.3)
[2021-02-20] MEDS: PIPERACILLIN/TAZO 2.25 GM in DEXTROSE 5% 50 ML IV SCH ×3 (05:51→21:38)
[2021-02-20] MEDS: CALCITRIOL 0.25 MCG CAPSULE PO SCH (09:23)
[2021-02-20] MEDS: CHOLECALCIFEROL 1,000 UNIT TABLET PO SCH (09:23)
[2021-02-20] MEDS: SODIUM CHLORIDE FLUSH 10ML SYR IVF SCH ×2 (09:23→21:00)
[2021-02-20] MEDS: INSULIN GLARGINE 100 UNITS/ML, PEN SQ-INSULIN SCH ×2 (09:35→21:37)
[2021-02-21] VITALS: BP 134/66
[2021-02-21] MEDS: INSULIN LISPRO 100 UNITS/ML, PEN SQ-INSULIN SCH ×6 (01:32→21:36)
[2021-02-21] MEDS: DIPHENHYDRAMINE 25 MG CAPSULE PO PRN (01:40)
[2021-02-21] MEDS ORDERED: CATHFLO-ALTEPLASE 2 MG/2 ML CATHFLUSH ONE ×2 (02:30→05:00)
[2021-02-21 02:32] LABS: BASOPHILS % (AUTO) 1 % (0-1); EOSINOPHILS % (AUTO) 2 % (1-7); LYMPHOCYTES % (AUTO) 8 % (22-44); MEAN CORPUSCULAR HGB CONC 33.5 g/dL (33.2-36.2); MEAN PLATELET VOLUME 8.5 fL (7.4-10.4); MONOCYTES % (AUTO) 10 % (2-9); NEUTROPHILS % (AUTO) 80 % (42-75); PLATELET COUNT 156 x10^3/uL (130-400); RED BLOOD COUNT 3.19 x10^6/uL (4.38-5.82); RED CELL DISTRIBUTION WIDTH 14.9 % (9.4-14.8)
[2021-02-21 02:41] LABS: INTERNATIONAL NORMALIZED RATIO 1.1 (0.93-1.1); PROTHROMBIN TIME 11.7 Seconds (9.6-11.5)
[2021-02-21 02:43] LABS: ALANINE AMINOTRANSFERASE 181 U/L (12-78); ALBUMIN 2.3 g/dL (3.4-5.0); ANION GAP 9 mmol/L (5-15); BILIRUBIN, DIRECT 0.5 mg/dL (0.1-0.2); CALCIUM 8.1 mg/dL (8.5-10.1); CHLORIDE 95 mmol/L (98-107); CREATININE 7.83 mg/dL (0.7-1.3)
[2021-02-21 02:45] LABS: ALKALINE PHOSPHATASE 81 U/L (45-117); BILIRUBIN,INDIRECT 0.4 mg/dL (0.0-2.0); BILIRUBIN,TOTAL 0.9 mg/dL (0.2-1.0); TOTAL PROTEIN 6.1 g/dL (6.4-8.2)
[2021-02-21] MEDS: PIPERACILLIN/TAZO 2.25 GM in DEXTROSE 5% 50 ML IV SCH ×3 (05:02→21:36)
[2021-02-21] MEDS: SODIUM CHLORIDE FLUSH 10ML SYR IVF SCH ×2 (08:47→22:06)
[2021-02-21] MEDS: CHOLECALCIFEROL 1,000 UNIT TABLET PO SCH (08:47)
[2021-02-21] MEDS: CALCITRIOL 0.25 MCG CAPSULE PO SCH (08:47)
[2021-02-21] MEDS: INSULIN GLARGINE 100 UNITS/ML, PEN SQ-INSULIN SCH ×3 (08:49→21:35)
[2021-02-21] MEDS: ISOSORBIDE DINITRATE 10 MG TABLET PO SCH ×3 (09:00→21:37)
[2021-02-21] MEDS: ACETAMINOPHEN 500 MG TABLET PO PRN (15:29)
[2021-02-21 15:57] VITALS: BP 131/63
[2021-02-21 21:21] VITALS: BP 138/71
[2021-02-21] MEDS: MELATONIN 5 MG TABLET PO PRN (21:38)
[2021-02-21] MEDS: DARBEPOETIN 100 MCG/ML SQ SCH (22:05)
[2021-02-22 00:50] VITALS: BP 126/68
[2021-02-22] MEDS: PIPERACILLIN/TAZO 2.25 GM in DEXTROSE 5% 50 ML IV SCH ×3 (05:00→22:46)
[2021-02-22 06:35] LABS: ALBUMIN 2.2 g/dL (3.4-5.0); ANION GAP 9 mmol/L (5-15); CALCIUM 7.4 mg/dL (8.5-10.1); CHLORIDE 96 mmol/L (98-107); CREATININE 5.68 mg/dL (0.7-1.3)
[2021-02-22 06:36] LABS: BASOPHILS % (AUTO) 1 % (0-1); EOSINOPHILS % (AUTO) 3 % (1-7); LYMPHOCYTES % (AUTO) 10 % (22-44); MEAN CORPUSCULAR HEMOGLOBIN 31.1 pg (27.5-34.5); MEAN CORPUSCULAR HGB CONC 33.9 g/dL (33.2-36.2); MEAN PLATELET VOLUME 8.4 fL (7.4-10.4); MONOCYTES % (AUTO) 14 % (2-9); NEUTROPHILS % (AUTO) 72 % (42-75); PLATELET COUNT 130 x10^3/uL (130-400); RED BLOOD COUNT 2.93 x10^6/uL (4.38-5.82); RED CELL DISTRIBUTION WIDTH 15.5 % (9.4-14.8)
[2021-02-22 07:32] VITALS: BP 127/68
[2021-02-22] MEDS: CHOLECALCIFEROL 1,000 UNIT TABLET PO SCH (08:24)
[2021-02-22] MEDS: ISOSORBIDE DINITRATE 10 MG TABLET PO SCH ×3 (08:24→22:47)
[2021-02-22] MEDS: CALCITRIOL 0.25 MCG CAPSULE PO SCH (08:24)
[2021-02-22] MEDS: INSULIN LISPRO 100 UNITS/ML, PEN SQ-INSULIN SCH ×4 (08:25→22:45)
[2021-02-22] MEDS: SODIUM CHLORIDE FLUSH 10ML SYR IVF SCH ×2 (09:00→22:45)
[2021-02-22] MEDS: INSULIN GLARGINE 100 UNITS/ML, PEN SQ-INSULIN SCH ×2 (09:00→22:46)
[2021-02-22 14:01] VITALS: BP 146/75
[2021-02-22 18:44] VITALS: BP 151/83
[2021-02-22] MEDS: ACETAMINOPHEN 500 MG TABLET PO PRN (22:46)
[2021-02-23 01:46] VITALS: BP 130/79
[2021-02-23 05:15] VITALS: BP 123/69
[2021-02-23] MEDS: METOPROLOL SUCCINATE 25 MG TAB.ER.24H PO SCH (05:29)
[2021-02-23] MEDS: ACETAMINOPHEN 500 MG TABLET PO PRN (05:32)
[2021-02-23] MEDS: PIPERACILLIN/TAZO 2.25 GM in DEXTROSE 5% 50 ML IV SCH ×3 (05:32→21:36)
[2021-02-23] MEDS: INSULIN LISPRO 100 UNITS/ML, PEN SQ-INSULIN SCH ×4 (07:00→20:35)
[2021-02-23 07:17] VITALS: BP 112/66
[2021-02-23] MEDS: INSULIN GLARGINE 100 UNITS/ML, PEN SQ-INSULIN SCH ×2 (09:00→20:36)
[2021-02-23] MEDS: SODIUM CHLORIDE FLUSH 10ML SYR IVF SCH ×2 (09:00→20:35)
[2021-02-23 12:19] LABS: ALANINE AMINOTRANSFERASE 95 U/L (12-78); ALBUMIN 2.4 g/dL (3.4-5.0); ANION GAP 11 mmol/L (5-15); CALCIUM 8.1 mg/dL (8.5-10.1); CHLORIDE 97 mmol/L (98-107)
[2021-02-23 12:22] LABS: ALKALINE PHOSPHATASE 103 U/L (45-117); BILIRUBIN,TOTAL 0.7 mg/dL (0.2-1.0); CREATININE 4.11 mg/dL (0.7-1.3); TOTAL PROTEIN 6.7 g/dL (6.4-8.2)
[2021-02-23] MEDS: CALCITRIOL 0.25 MCG CAPSULE PO SCH (12:36)
[2021-02-23] MEDS: CHOLECALCIFEROL 1,000 UNIT TABLET PO SCH (12:37)
[2021-02-23] MEDS: ISOSORBIDE DINITRATE 10 MG TABLET PO SCH ×3 (12:37→20:35)
[2021-02-23 13:17] VITALS: BP 102/57
[2021-02-23 14:36] LABS: MEAN CORPUSCULAR HEMOGLOBIN 31.8 pg (27.5-34.5); MEAN CORPUSCULAR HGB CONC 34.6 g/dL (33.2-36.2); MEAN PLATELET VOLUME 9.5 fL (7.4-10.4); PLATELET COUNT 165 x10^3/uL (130-400); RED CELL DISTRIBUTION WIDTH 16.2 % (9.4-14.8)
[2021-02-23 15:14] LABS: EOS#(MANUAL) 0.37 x10^3/uL (0.0-0.4); EOS% (MANUAL) 6 % (1-7); LYMPH#(MANUAL) 0.73 x10^3/uL (1-3.4); LYMPHS% (MANUAL) 12 % (22-44); MONOS#(MANUAL) 0.49 x10^3/uL (0.3-2.7); MONOS% (MANUAL) 8 % (2-9); REACTIVE LYMPHS # (MANUAL) 0.12 x10^3/uL (0-0); REACTIVE LYMPHS % (MANUAL) 2 % (0-0); SEG#(MANUAL) 4.39 x10^3/uL (1.8-6.8); SEGS% (MANUAL) 72 % (42-75)
[2021-02-23 15:15] LABS: ANISOCYTOSIS 1+; POLYCHROMASIA 1+
[2021-02-23 15:16] LABS: ECHINOCYTES 1+
[2021-02-23 15:18] LABS: <PLATELET ESTIMATE> ADEQUATE; <PLT MORPHOLOGY> NORMAL PLT MORPH
[2021-02-23 15:19] LABS: OVALOCYTES 1+
[2021-02-23 19:18] VITALS: BP 135/73
[2021-02-23] MEDS: DIPHENHYDRAMINE 25 MG CAPSULE PO PRN (20:34)
[2021-02-24 01:00] VITALS: BP 120/68
[2021-02-24] MEDS: MELATONIN 5 MG TABLET PO PRN (01:54)
[2021-02-24 05:21] LABS: BASOPHILS % (AUTO) 1 % (0-1); EOSINOPHILS % (AUTO) 5 % (1-7); LYMPHOCYTES % (AUTO) 13 % (22-44); MEAN CORPUSCULAR HEMOGLOBIN 30.9 pg (27.5-34.5); MEAN CORPUSCULAR HGB CONC 33.5 g/dL (33.2-36.2); MEAN PLATELET VOLUME 8.5 fL (7.4-10.4); MONOCYTES % (AUTO) 19 % (2-9); NEUTROPHILS % (AUTO) 61 % (42-75); PLATELET COUNT 124 x10^3/uL (130-400); RED BLOOD COUNT 2.99 x10^6/uL (4.38-5.82); RED CELL DISTRIBUTION WIDTH 16.2 % (9.4-14.8)
[2021-02-24 05:37] LABS: ALBUMIN 2.4 g/dL (3.4-5.0); ANION GAP 9 mmol/L (5-15); CALCIUM 8.2 mg/dL (8.5-10.1); CHLORIDE 96 mmol/L (98-107)
[2021-02-24 05:42] LABS: ALANINE AMINOTRANSFERASE 79 U/L (12-78); ALKALINE PHOSPHATASE 76 U/L (45-117); BILIRUBIN,TOTAL 0.6 mg/dL (0.2-1.0); CREATININE 5.21 mg/dL (0.7-1.3); TOTAL PROTEIN 6.3 g/dL (6.4-8.2); TRIGLYCERIDES 73 mg/dL (50-200)
[2021-02-24 06:03] VITALS: BP 110/63
[2021-02-24] MEDS: METOPROLOL SUCCINATE 25 MG TAB.ER.24H PO SCH (06:04)
[2021-02-24] MEDS: PIPERACILLIN/TAZO 2.25 GM in DEXTROSE 5% 50 ML IV SCH ×3 (06:06→20:41)
[2021-02-24 07:11] VITALS: BP 120/65
[2021-02-24] MEDS: INSULIN LISPRO 100 UNITS/ML, PEN SQ-INSULIN SCH ×4 (07:50→20:45)
[2021-02-24] MEDS: ISOSORBIDE DINITRATE 10 MG TABLET PO SCH ×3 (08:10→20:24)
[2021-02-24] MEDS: INSULIN GLARGINE 100 UNITS/ML, PEN SQ-INSULIN SCH ×2 (08:10→20:41)
[2021-02-24] MEDS: CALCITRIOL 0.25 MCG CAPSULE PO SCH (08:23)
[2021-02-24] MEDS: SODIUM CHLORIDE FLUSH 10ML SYR IVF SCH ×2 (08:23→20:40)
[2021-02-24] MEDS: CHOLECALCIFEROL 1,000 UNIT TABLET PO SCH (08:23)
[2021-02-24] MEDS ORDERED: REGADENOSON 0.4 MG/5 ML SYRINGE ONE ×2 (08:45→08:58)
[2021-02-24 12:43] VITALS: BP 121/63
[2021-02-24 19:17] VITALS: BP 182/78
[2021-02-24] MEDS: ATORVASTATIN 80 MG TABLET PO SCH (20:22)
[2021-02-24] MEDS: ACETAMINOPHEN 500 MG TABLET PO PRN (20:30)
[2021-02-25 01:17] VITALS: BP 120/79
[2021-02-25] MEDS: METOPROLOL SUCCINATE 25 MG TAB.ER.24H PO SCH (05:33)
[2021-02-25] MEDS: SODIUM CHLORIDE FLUSH 10ML SYR IVF SCH ×2 (08:17→20:24)
[2021-02-25] MEDS: CHOLECALCIFEROL 1,000 UNIT TABLET PO SCH (08:18)
[2021-02-25] MEDS: CALCITRIOL 0.25 MCG CAPSULE PO SCH (08:18)
[2021-02-25] MEDS: ISOSORBIDE DINITRATE 10 MG TABLET PO SCH ×3 (08:18→20:21)
[2021-02-25] MEDS: INSULIN LISPRO 100 UNITS/ML, PEN SQ-INSULIN SCH ×4 (08:24→20:28)
[2021-02-25] MEDS: INSULIN GLARGINE 100 UNITS/ML, PEN SQ-INSULIN SCH ×2 (08:25→20:29)
[2021-02-25 08:27] VITALS: BP 117/67
[2021-02-25] MEDS: ACETAMINOPHEN 500 MG TABLET PO PRN (10:01)
[2021-02-25 12:05] VITALS: BP 130/81
[2021-02-25 14:10] VITALS: BP 137/70
[2021-02-25 16:26] VITALS: BP 150/80
[2021-02-25] MEDS: LORazepam 0.5MG TABLET PO PRN (18:46)
[2021-02-25 19:25] VITALS: BP 146/71
[2021-02-25] MEDS: MELATONIN 5 MG TABLET PO PRN (20:20)
[2021-02-25] MEDS: ATORVASTATIN 80 MG TABLET PO SCH (20:20)
[2021-02-26] MEDS: DIPHENHYDRAMINE 25 MG CAPSULE PO PRN (00:15)
[2021-02-26] MEDS: ACETAMINOPHEN 500 MG TABLET PO PRN ×2 (00:15→14:50)
[2021-02-26 00:20] VITALS: BP 129/71
[2021-02-26] MEDS: METOPROLOL SUCCINATE 25 MG TAB.ER.24H PO SCH (05:29)
[2021-02-26 05:57] LABS: ALANINE AMINOTRANSFERASE 64 U/L (12-78); ALBUMIN 2.5 g/dL (3.4-5.0); ANION GAP 10 mmol/L (5-15); CALCIUM 8.5 mg/dL (8.5-10.1); CHLORIDE 96 mmol/L (98-107); CREATININE 5.04 mg/dL (0.7-1.3)
[2021-02-26 05:59] LABS: ALKALINE PHOSPHATASE 88 U/L (45-117); BILIRUBIN,TOTAL 0.5 mg/dL (0.2-1.0); TOTAL PROTEIN 6.5 g/dL (6.4-8.2)
[2021-02-26 06:00] LABS: BASOPHILS % (AUTO) 1 % (0-1); EOSINOPHILS % (AUTO) 6 % (1-7); LYMPHOCYTES % (AUTO) 17 % (22-44); MEAN CORPUSCULAR HEMOGLOBIN 31.3 pg (27.5-34.5); MEAN PLATELET VOLUME 8.6 fL (7.4-10.4); MONOCYTES % (AUTO) 23 % (2-9); NEUTROPHILS % (AUTO) 53 % (42-75); PLATELET COUNT 127 x10^3/uL (130-400); RED CELL DISTRIBUTION WIDTH 17.3 % (9.4-14.8)
[2021-02-26 07:44] VITALS: BP 149/74
[2021-02-26] MEDS: INSULIN LISPRO 100 UNITS/ML, PEN SQ-INSULIN SCH ×3 (08:14→17:24)
[2021-02-26] MEDS: CALCITRIOL 0.25 MCG CAPSULE PO SCH (08:15)
[2021-02-26] MEDS: CHOLECALCIFEROL 1,000 UNIT TABLET PO SCH (08:15)
[2021-02-26] MEDS: SODIUM CHLORIDE FLUSH 10ML SYR IVF SCH (08:15)
[2021-02-26] MEDS ORDERED: LOSARTAN 25MG TABLET PO SCH (09:00)
[2021-02-26] MEDS ORDERED: INSULIN GLARGINE 100 UNITS/ML, PEN SQ-INSULIN SCH ×2 (09:00→21:00)
[2021-02-26] MEDS: LORazepam 0.5MG TABLET PO PRN (09:47)
[2021-02-26 12:14] VITALS: BP 138/65
[2021-02-26] MEDS ORDERED: METO25TA91 PO (12:30)
[2021-02-26] MEDS ORDERED: CALC0.25 PO (12:30)
[2021-02-26] MEDS ORDERED: ATOR-2 PO (12:30)
[2021-02-26] MEDS ORDERED: INSU100I13 SQ-INSULIN ×2 (12:30)
[2021-02-26] MEDS ORDERED: MELA5TAB14 PO (12:30)
[2021-02-26] MEDS ORDERED: LOSA25TA25 PO (12:30)
[2021-02-26] MEDS ORDERED: CHOL10003 PO (12:30)
[2021-02-26 17:57] VITALS: BP 136/70
== END 2021-02-26 18:33 | disposition home or self-care (01) | DRG 207 ==
LOC: ED 10:03 → 5SO 10:04 → SUATTDRO 10:29 → ED 10:56 → CCU 22:15 → 4EST 02-07 13:46 → CCU 02-07 16:09 → 4EST 02-11 13:40 → 4WST 02-12 16:44 → 4EST 02-15 19:36 → CCU 02-18 07:33 → 4EST 02-21 16:03
PROVIDERS: ADMIT Hospitalist; ATTEND Internal Medicine
PROC: 5A1955Z Respiratory Ventilation, Greater than 96 Consecutive Hours (ICD-10-PCS; principal; 2021-01-28)
PROC: 0BH17EZ Insertion of Endotracheal Airway into Trachea, Via Natural or Artificial Opening (ICD-10-PCS; 2021-01-28)
PROC: 5A09357 Assistance with Respiratory Ventilation, Less than 24 Consecutive Hours, Continuous Positive Airway Pressure (ICD-10-PCS; 2021-01-28)
PROC: 5A12012 Performance of Cardiac Output, Single, Manual (ICD-10-PCS; 2021-01-28)
PROC: 5A1D70Z Performance of Urinary Filtration, Intermittent, Less than 6 Hours Per Day (ICD-10-PCS; 2021-01-29)
PROC: 5A1D70Z Performance of Urinary Filtration, Intermittent, Less than 6 Hours Per Day (ICD-10-PCS; 2021-01-31)
PROC: 5A1D70Z Performance of Urinary Filtration, Intermittent, Less than 6 Hours Per Day (ICD-10-PCS; 2021-02-01)
PROC: 5A1D70Z Performance of Urinary Filtration, Intermittent, Less than 6 Hours Per Day (ICD-10-PCS; 2021-02-04)
PROC: 5A1D70Z Performance of Urinary Filtration, Intermittent, Less than 6 Hours Per Day (ICD-10-PCS; 2021-02-06)
PROC: 5A1945Z Respiratory Ventilation, 24-96 Consecutive Hours (ICD-10-PCS; 2021-02-07)
PROC: 0BH17EZ Insertion of Endotracheal Airway into Trachea, Via Natural or Artificial Opening (ICD-10-PCS; 2021-02-07)
PROC: 5A1D70Z Performance of Urinary Filtration, Intermittent, Less than 6 Hours Per Day (ICD-10-PCS; 2021-02-07)
PROC: 0T9B70Z Drainage of Bladder with Drainage Device, Via Natural or Artificial Opening (ICD-10-PCS; 2021-02-08)
PROC: 5A1D70Z Performance of Urinary Filtration, Intermittent, Less than 6 Hours Per Day (ICD-10-PCS; 2021-02-09)
PROC: 02HV33Z Insertion of Infusion Device into Superior Vena Cava, Percutaneous Approach (ICD-10-PCS; 2021-02-10)
PROC: B543ZZA Ultrasonography of Right Jugular Veins, Guidance (ICD-10-PCS; 2021-02-10)
PROC: B5181ZA Fluoroscopy of Superior Vena Cava using Low Osmolar Contrast, Guidance (ICD-10-PCS; 2021-02-10)
PROC: 5A1D70Z Performance of Urinary Filtration, Intermittent, Less than 6 Hours Per Day (ICD-10-PCS; 2021-02-10)
PROC: 5A1D70Z Performance of Urinary Filtration, Intermittent, Less than 6 Hours Per Day (ICD-10-PCS; 2021-02-11)
PROC: 5A1D70Z Performance of Urinary Filtration, Intermittent, Less than 6 Hours Per Day (ICD-10-PCS; 2021-02-14)
PROC: 0JH63XZ Insertion of Tunneled Vascular Access Device into Chest Subcutaneous Tissue and Fascia, Percutaneous Approach (ICD-10-PCS; 2021-02-17)
PROC: 02HV33Z Insertion of Infusion Device into Superior Vena Cava, Percutaneous Approach (ICD-10-PCS; 2021-02-17)
PROC: B518ZZA Fluoroscopy of Superior Vena Cava, Guidance (ICD-10-PCS; 2021-02-17)
PROC: B543ZZA Ultrasonography of Right Jugular Veins, Guidance (ICD-10-PCS; 2021-02-17)
PROC: 5A1945Z Respiratory Ventilation, 24-96 Consecutive Hours (ICD-10-PCS; 2021-02-18)
PROC: 0BH17EZ Insertion of Endotracheal Airway into Trachea, Via Natural or Artificial Opening (ICD-10-PCS; 2021-02-18)
PROC: 30233N1 Transfusion of Nonautologous Red Blood Cells into Peripheral Vein, Percutaneous Approach (ICD-10-PCS; 2021-02-18)
PROC: 05HY33Z Insertion of Infusion Device into Upper Vein, Percutaneous Approach (ICD-10-PCS; 2021-02-18)
PROC: B544ZZA Ultrasonography of Left Jugular Veins, Guidance (ICD-10-PCS; 2021-02-18)
PROC: 5A1D70Z Performance of Urinary Filtration, Intermittent, Less than 6 Hours Per Day (ICD-10-PCS; 2021-02-18)
PROC: 5A1D70Z Performance of Urinary Filtration, Intermittent, Less than 6 Hours Per Day (ICD-10-PCS; 2021-02-21)
PROC: 5A1D70Z Performance of Urinary Filtration, Intermittent, Less than 6 Hours Per Day (ICD-10-PCS; 2021-02-23)
PROC: 5A1D70Z Performance of Urinary Filtration, Intermittent, Less than 6 Hours Per Day (ICD-10-PCS; 2021-02-25)
DX: J96.01 Acute respiratory failure with hypoxia (principal); I21.A1 Myocardial infarction type 2; A41.9 Sepsis, unspecified organism; N18.6 End stage renal disease; N17.0 Acute kidney failure with tubular necrosis; G93.41 Metabolic encephalopathy; I46.2 Cardiac arrest due to underlying cardiac condition; I50.43 Acute on chronic combined systolic (congestive) and diastolic (congestive) heart failure; I60.9 Nontraumatic subarachnoid hemorrhage, unspecified; I62.00 Nontraumatic subdural hemorrhage, unspecified; J15.8 Pneumonia due to other specified bacteria; I13.2 Hypertensive heart and chronic kidney disease with heart failure and with stage 5 chronic kidney disease, or end stage renal disease; N18.4 Chronic kidney disease, stage 4 (severe); E87.1 Hypo-osmolality and hyponatremia; I48.92 Unspecified atrial flutter; K56.7 Ileus, unspecified; N39.0 Urinary tract infection, site not specified; R57.9 Shock, unspecified; B95.2 Enterococcus as the cause of diseases classified elsewhere; D63.8 Anemia in other chronic diseases classified elsewhere; D69.6 Thrombocytopenia, unspecified; E11.22 Type 2 diabetes mellitus with diabetic chronic kidney disease; E11.65 Type 2 diabetes mellitus with hyperglycemia; E78.5 Hyperlipidemia, unspecified; E87.5 Hyperkalemia; E88.09 Other disorders of plasma-protein metabolism, not elsewhere classified; I25.10 Atherosclerotic heart disease of native coronary artery without angina pectoris; I25.5 Ischemic cardiomyopathy; I44.7 Left bundle-branch block, unspecified; I50.84 End stage heart failure; R36.9 Urethral discharge, unspecified; R74.01 Elevation of levels of liver transaminase levels; N25.0 Renal osteodystrophy; Z20.822 Contact with and (suspected) exposure to COVID-19; Z80.1 Family history of malignant neoplasm of trachea, bronchus and lung; Z95.1 Presence of aortocoronary bypass graft; Z95.5 Presence of coronary angioplasty implant and graft; Z99.2 Dependence on renal dialysis
CPT/HCPCS: 36415; 36600; 74018; 74230; 84145; 93017; 96374; 96375; 99291; C8929; J3490; 36556; 36558; 36565; 70450; 71045; 76937; 78452; 80048; 80053; 80069; 80076; 80202; 81001; 82272; 82306; 82330; 82533; 82728; 82803; 82947; 82962; 83540; 83550; 83735; 83880; 83970; 84100; 84478; 84484; 84550; 85014; 85018; 85025; 85520; 85610; 86480; 86704; 86706; 86803; 86850; 86900; 86923; 87040; 87070; 87076; 87077; 87081; 87086; 87186; 87205; 87324; 87340; 90935; 92950; 93005; 93990; 94002; 94003; 94150; 95819; 99156; 99157; G0378; J0461; J0610; J0881; J1644; J1815; J1940; J2250; J2405; J2543; J2597; J2704; J2785; J2997; J3010; J3370; J3486; P9047; Q0162; U0005; A9502; C1750; C1751; C9113; J0330; J1200; J1642; J2270; J2310; J2765; J7040; J7050; P9016; Q0163; U0003